=== PATIENT | male | born 1945 | race Caucasian/White ===

== ENCOUNTER 2021-04-23 13:23 | Inpatient (IN) ==
--- NOTE | 2021-04-23 18:18 | XRay Report ---
SINGLE VIEW CHEST CLINICAL HISTORY: Atypical chest pain. FINDINGS: 2 AP, portable, upright chest radiographs are obtained. No prior studies are available for comparison at the time of dictation. The heart is mildly enlarged noting atherosclerotic calcificati on of the thoracic aorta. The pulmonary vasculature is noncongested. The lungs and pleural spaces are clear. No pneumothorax is seen. The skeletal structures are osteopenic. The bony thorax is grossly i ntact. Degenerative change is noted in the shoulders and thoracic spine. IMPRESSION: Mild cardiomegaly with no active disease in the chest. ACT 112: Negative or not required by law. Electronically signed by: Slava Franco M.D. 04/23/2021 6:16 PM
--- NOTE | 2021-04-23 18:55 | Emergency Department Note ---
Impression & Plan Exertional chest pain, Systolic murmur ED Provider Note Name: MARTHA JOHNSON Age: 75 Sex: M Arrives Via: Walk-In Informant: Patient ED Provider: José Luis Mares MD Chief Complaint: chest pain Impression: Exertional Chest Pain Systolic Murmur Medical Decision Makin yr old male with history HTN, DMII, HLP, GI Bleed/PUD, arrives with complaint of chest pain with exertion over last few days, worsening tonight. Currently without symptoms and feels well at rest. On exam he has systolic murmur which he denies having mentioned to him previously. CXR, ekg, trop all wnl. Labs otherwise OK. Will need further cardiac work up and I have high suspicious cardiac disease, though without current pain, ekg abnormality nor trop bump will hold on anticoagulation at this time. Discussed with hospitalist who agree and will bring in for further management. Unclear etiology of systolic murmur which will also require further work up. Triage/Nursing Notes reviewed by Me Differentials:Cardiac ischemia, aortic dissection, pulmonary embolism, pneumothorax, pneumonia, pericarditis, myocarditis, esophageal rupture, GERD, cholecystitis, pancreatitis, musculoskeletal, as well as other pathologies. Vital Signs: reviewed and remarkable for HTN Interventions: saline lock, asa 324mg po Labs:Reviewed and remarkable for no significant abnormalities Imaging:X ray results are stated below per my interpretation: Chest: 1 view: Mildly enlarged heart, mild congestion EKG:Per My Interpretation: Indication Chest Pain: NSR 87 bpm, qtc 418. No Ectopy. No Ischemia. No previous for comparison Cardiac/Tele Monitoring: Cardiac Monitoring: An Order was placed for continuous cardiac monitoring. The monitor shows a rate of 80 with a normal sinus rhythm. Consults:Dr Drew DURBIN Hospitalist Plan: Disposition:Hospitalization. Condition: Good History of Present Illness:75 yr old male arrives for evaluation of exertional chest pain. Patient notes that over the last 3 days he has been having increasing chest pain with exertion. Left upper chest and pressure like. No radiation of pain. No shortness fo breath, vomiting, nausea, palpitations, syncope, leg swelling, nor other symptoms. Denies abdominal pain, back pain, headache, rashes, urinary/bowel symptoms, calf pain nor other symptoms. No recent travel, falls, trauma, injuries. No history of cardiac disease nor cardiac work-up. No medications taken prior to arrival. Rest makes symptoms go away, exertion makes worse. Patient denies history of known murmur before. ROS: See above HPI for pertinent positives & negatives. A total of 10 systems reviewed and were otherwise negative. Past Medical History:HTN, DMII, HLP, GI Bleed/PUD Past Surgical History:None Family History:Brother of COPD/CAD Social History:Retired, golfs regularly, , daughter and son are Cardiac RNs, smokes cigar every 3 to 4 days, occasional beer, no drugs Home Medications:Glipizide, metformin, atorvastatin, lisinopril Allergies:NKDA Vitals:Blood Pressure: 143/82, Pulse 91, RR 18, T 36.8C, O2 97% on RA Physical Exam: GENERAL: Patient is tired appearing and in minimal distress. EYES: No scleral icterus, unremarkable pupils. ENT: Mucous membranes moist, no nasal congestion. NECK: No masses appreciated, nomeningismus, trachea is midline. RESPIRATORY: No dyspnea. Clear to auscultation and equal bilaterally. No wheeze, no rhonchi. CARDIOVASCULAR: Regular rate and rhythm.No rubs, gallops appreciated. Soft systolic murmur. GASTROINTESTINAL: Abdomen soft, non-tender, no peritonitis.Bowel sounds positive.No masses appreciated. BACK: No midline tenderness, no CVA tenderness EXTREMITIES: Normal motion all extremities, no cyanosis, no edema. NEUROLOGIC: Alert and oriented, no acute motor or sensory deficits, no focal w eakness, cranial nerves grossly intact. SKIN: No rash, no jaundice, no diaphoresis. PSYCH: Appropriate GCS: 15 ED Course: Times/Reassessments: stable, no further symptoms, feeling well José Luis Mares MD Past Med/Surg History Social History Smoking Status: Light tobacco smoker Tobacco Type: Cigars Cigarettes Per Day: occassionally; Second Hand Exposure: No; Do You Dip or Chew Tobacco: No; Tobacco Cessation Education Requested by Patient: No Hx Alcohol Use: Yes Alcohol type: beer Hx Substance Use: No Preferred Language: Ukrainian Communication Ability: Effective Game Show Host Required: No Beliefs That Will Affect Care: None Current Living Situation: Spouse Current Living Situation Comment: Lives at home with Other Information That Helps Us Care for You: No Feels Safe at Home: Yes Assistive Devices: None Allergies Allergies Allergy/AdvReac Type Severity Reaction Status Date / Time No Known Allergies Allergy Unverified 04/23/21 19:42 Home Meds Home Medications Medication Instructions Recorded Confirmed atorvastatin 20 mg tablet 20 mg PO HS 04/23/21 04/23/21 glipizide 10 mg tablet 10 mg PO BID 04/23/21 04/23/21 lisinopril 40 mg tablet 40 mg PO QAM 04/23/21 04/23/21 metformin 1,000 mg tablet 1,000 mg PO BID 04/23/21 04/23/21 Results & Data (ED) Vital Signs Vital Signs - 24 hr 04/23/21 13:28 04/23/21 19:26 04/23/21 19:30 Temperature 36.8 C Temperature Source Skin Pulse Rate 91 H 74 Pulse Rate from SpO2 Sensor 76 Respiratory Rate 18 16 Blood Pressure 143/82 H 138/95 Blood Pressure Mean 102 109 Pulse Oximetry 97 99 Oxygen Delivery Method Room Air Sepsis Recent Fever Within 48 Hours No Sepsis New/Unexplained Change in Mental Status No Sepsis Action Taken by Nursing No Action Required 04/23/21 20:00 04/23/21 20:30 04/23/21 21:00 Temperature Temperature Source Pulse Rate 76 84 82 Pulse Rate from SpO2 Sensor 77 86 82 Respiratory Rate 17 18 20 Blood Pressure Blood Pressure Mean Pulse Oximetry 100 98 98 Oxygen Delivery Method Sepsis Recent Fever Within 48 Hours Sepsis New/Unexplained Change in Mental Status Sepsis Action Taken by Nursing 04/23/21 21:30 Temperature Temperature Source Pulse Rate 79 Pulse Rate from SpO2 Sensor 77 Respiratory Rate 16 Blood Pressure Blood Pressure Mean Pulse Oximetry 96 Oxygen Delivery Method Sepsis Recent Fever Within 48 Hours Sepsis New/Unexplained Change in Mental Status Sepsis Action Taken by Nursing Laboratory Data Result diagrams: 04/23/21 19:24 04/23/21 19:24 Lab Results 04/23/21 04/23/21 04/23/21 Range/Units 19:07 19:07 19:24 WBC 9.37 (4.8-10.8) K/uL RBC 4.60 L (4.7-6.1) M/uL Hgb 13.7 L (14.0-18.0) g/dL Hct 40.6 L (42-52) % MCV 88.3 (80-100) fL MCH 29.8 (25-34) pg MCHC 33.7 (32-36) g/dL RDW Std Deviation 42.4 (36.4-46.3) fL RDW Coeff of Edilson 13.1 (11.5-14.5) % Plt Count 278 (130-400) K/uL MPV 10.0 (7.4-10.4) fL Immature Gran % (Auto) 0.1 % Neut % (Auto) 66.1 % Lymph % (Auto) 25.8 % Garza % (Auto) 6.3 % Eos % (Auto) 1.4 % Baso % (Auto) 0.3 % Neut # (Auto) 6.19 (1.4-6.5) K/uL Lymph # (Auto) 2.42 (1.2-3.4) K/uL Garza # (Auto) 0.59 (0.11-0.59) K/uL Eos # (Auto) 0.13 (0-0.5) K/uL Baso # (Auto) 0.03 (0-0.2) K/uL Immature Gran # (Auto) 0.01 (0.00-0.02) K/uL PT (9.0-12.0) Seconds INR (0.9-1.1) APTT (21.0-31.0) Seconds PTT Ratio Sodium (136-145) mmol/L Potassium (3.5-5.1) mmol/L Chloride (98-107) mmol/L Carbon Dioxide (21-32) mmol/L Anion Gap (3-11) BUN (7-18) mg/dl Creatinine (0.6-1.4) mg/dl Est Cr Clr Drug Dosing ml/min Est GFR ( Amer) ml/min Est GFR (Non-Af Amer) ml/min BUN/Creatinine Ratio (10-20) Glucose (70-99) mg/dl Calcium (8.5-10.1) mg/dl Magnesium (1.8-2.4) mg/dl Total Bilirubin (0.2-1) mg/dl AST (15-37) U/L ALT (12-78) U/L Alkaline Phosphatase (45-117) U/L Troponin I (0-0.045) ng/ml Total Protein (6.4-8.2) gm/dl Albumin (3.4-5.0) gm/dl Globulin (2.5-4.0) gm/dl Albumin/Globulin Ratio (0.9-2) Lipase (73-393) U/L COVID-19 Eval Order Covid19 at [facility] SARS-CoV-2 (PCR) NEGATIVE (Negative) 04/23/21 04/23/21 Range/Units 19:24 19:24 WBC (4.8-10.8) K/uL RBC (4.7-6.1) M/uL Hgb (14.0-18.0) g/dL Hct (42-52) % MCV (80-100) fL MCH (25-34) pg MCHC (32-36) g/dL RDW Std Deviation (36.4-46.3) fL RDW Coeff of Edilson (11.5-14.5) % Plt Count (130-400) K/uL MPV (7.4-10.4) fL Immature Gran % (Auto) % Neut % (Auto) % Lymph % (Auto) % Garza % (Auto) % Eos % (Auto) % Baso % (Auto) % Neut # (Auto) (1.4-6.5) K/uL Lymph # (Auto) (1.2-3.4) K/uL Garza # (Auto) (0.11-0.59) K/uL Eos # (Auto) (0-0.5) K/uL Baso # (Auto) (0-0.2) K/uL Immature Gran # (Auto) (0.00-0.02) K/uL PT 10.3 (9.0-12.0) Seconds INR 1.0 (0.9-1.1) APTT 26.5 (21.0-31.0) Seconds PTT Ratio 1.0 Sodium 137 (136-145) mmol/L Potassium 4.1 (3.5-5.1) mmol/L Chloride 103 (98-107) mmol/L Carbon Dioxide 27 (21-32) mmol/L Anion Gap 7.0 (3-11) BUN 18 (7-18) mg/dl Creatinine 1.14 (0.6-1.4) mg/dl Est Cr Clr Drug Dosing 80.2 ml/min Est GFR ( Amer) 72.5 ml/min Est GFR (Non-Af Amer) 62.6 ml/min BUN/Creatinine Ratio 15.4 (10-20) Glucose 97 (70-99) mg/dl Calcium 9.8 (8.5-10.1) mg/dl Magnesium 1.9 (1.8-2.4) mg/dl Total Bilirubin 0.6 (0.2-1) mg/dl AST 13 L (15-37) U/L ALT 20 (12-78) U/L Alkaline Phosphatase 87 (45-117) U/L Troponin I 0.045 (0-0.045) ng/ml Total Protein 8.7 H (6.4-8.2) gm/dl Albumin 3.9 (3.4-5.0) gm/dl Globulin 4.8 H (2.5-4.0) gm/dl Albumin/Globulin Ratio 0.8 L (0.9-2) Lipase 141 (73-393) U/L COVID-19 Eval Order SARS-CoV-2 (PCR) (Negative) Administered Medications Discontinued Medications Aspirin (Aspirin 81 Mg Chew) 324 mg PO NOW STA Stop: 04/23/21 20:09 Last Admin: 04/23/21 20:17 Dose: 324 mg Documented by: [id number] Enoxaparin Sodium (Enoxaparin Inj 40 Mg/0.4 Ml Syr) 40 mg SQ Q12H KEY Stop: 05/24/21 01:01 Last Admin: 04/24/21 01:19 Dose: Not Given Documented by: [id number] Imaging Data Radiologist's Impression: Chest X-Ray 04/23/21 14:13 SINGLE VIEW CHEST CLINICAL HISTORY: Atypical chest pain. FINDINGS: 2 AP, portable, upright chest radiographs are obtained. No prior studies are available for comparison at the time of dictation. The heart is mildly enlarged noting atherosclerotic calcification of the thoracic aorta. The pulmonary vasculature is noncongested. The lungs and pleural spaces are clear. No pneumothorax is seen. The skeletal structures are osteopenic. The bony thorax is grossly intact. Degenerative change is noted in the shoulders and thoracic spine. IMPRESSION: Mild cardiomegaly with no active disease in the chest. ACT 112: Negative or not required by law. Electronically signed by: Slava Franco M.D. 04/23/2021 6:16 PM Discharge Plan Visit Data Chief Complaint: Chest Pain Stated Complaint: CHEST PAINS WITH PHYSICAL ACTIVITY ED Provider: José Luis Mares Discharge Problem: Exertional chest pain, Systolic murmur Discharge Instructions Interventions: ED Discharge Assessment Last Done: 04/24/21 00:29
[2021-04-23 19:37] LABS: Basophils # (auto) 0.03 K/uL (0-0.2); Basophils % (auto) 0.3 %; Eosinophils # (auto) 0.13 K/uL (0-0.5); Eosinophils % (auto) 1.4 %; Hematocrit (blood only) 40.6 % (42-52); Hemoglobin 13.7 g/dL (14.0-18.0); Immature Granulocytes # (auto) 0.01 K/uL (0.00-0.02); Immature Granulocytes % (auto) 0.1 %; Lymphocytes # (auto) 2.42 K/uL (1.2-3.4); Lymphocytes % (auto) 25.8 %; Mean Corpuscular Hemoglobin 29.8 pg (25-34); Mean Corpuscular Hgb Conc 33.7 g/dL (32-36); Mean Corpuscular Volume 88.3 fL (80-100); Monocytes # (auto) 0.59 K/uL (0.11-0.59); Monocytes % (auto) 6.3 %; Neutrophils # (auto) 6.19 K/uL (1.4-6.5); Neutrophils % (auto) 66.1 %; Platelet Count 278 K/uL (130-400); RDW Coefficient of Variation 13.1 % (11.5-14.5); RDW Standard Deviation 42.4 fL (36.4-46.3); White Blood Count 9.37 K/uL (4.8-10.8)
[2021-04-23 19:48] LABS: Partial Thromboplastin Time 26.5 Seconds (21.0-31.0); Prothrombin Time 10.3 Seconds (9.0-12.0)
[2021-04-23 19:53] LABS: Albumin Level 3.9 gm/dl (3.4-5.0); BUN Creatinine Ratio 15.4 (10-20); Calcium 9.8 mg/dl (8.5-10.1); Creatinine Clr Calc Pharmacy 80.2 ml/min; Est GFR (African American) 72.5 ml/min; Est GFR (Non-African American) 62.6 ml/min; Potassium 4.1 mmol/L (3.5-5.1)
[2021-04-23 19:58] LABS: Albumin Globulin Ratio 0.8 (0.9-2); Bilirubin,Total 0.6 mg/dl (0.2-1); Globulin 4.8 gm/dl (2.5-4.0); Total Protein 8.7 gm/dl (6.4-8.2); Troponin I 0.045 ng/ml (0-0.045)
[2021-04-23] MEDS ORDERED: ASPIRIN 81 MG CHEW PO STA (20:08)
--- NOTE | 2021-04-23 21:42 | History & Physical Report ---
Date of Service April 23, 2021 Assessment & Plan (1) Exertional chest pain: Plan: Will Davis is a 75-year-old male with past medical history of hyperlipidemia, hypertension, diabetes mellitus type 2, tobacco use who presents to [facility] due to exertional chest pain twice over the last 3 days. Exertional Chest Pain EKG with normal sinus rhythm, no ST changes Troponin detectable but at upper limit of normal Chest x-ray with mild cardiomegaly Admit for observation to med telemetry Repeat troponin 3 hours after initial Echocardiogram in the morning Lipid profile ordered for a.m. Cardiology consulted for evaluation of possible stress testing versus cath Magnesium level ordered Aspirin 81 mg every morning Systolic murmur Best heard at right upper sternal border Likely aortic stenosis Elevated total protein Repeat level in the morning If sustained, consider further work-up for MGUS/multiple myeloma Diabetes Mellitus Type 2 Hold home glipizide and Metformin Sliding scale insulin Basal coverage with Lantus 12 units twice daily NovoLog: Correction factor 35, carb ratio 11, BSG range 110-140 A1c in the morning Hypertension/Hyperlipidemia Continue home lisinopril 40 mg daily Continue home atorvastatin 20 mg daily Lipid panel in the morning DVT prophylaxis: Lovenox 40 mg SQ every 12 hours Dispo: Admit for observation to med telemetry Diet: Heart healthy CODE STATUS: Full code (2) Systolic murmur: (3) Diabetes mellitus: (4) Hypertension: (5) Hyperlipidemia: (6) Elevated total protein: History of Present Illness Primary Care Provider: NO PCP Will Davis is a 75-year-old male with past medical history of hyperlipidemia, hypertension, diabetes mellitus type 2, tobacco use who presents to [facility] due to exertional chest pain twice over the last 3 days. He says that the chest pain was localized to the left side of his chest and did not radiate to his arm or his neck, though he does say that his left hand felt a bit numb on one of the occasions. He describes the pain as mostly a pressure. This is the first time this is ever happened to him, has never had chest pain before. Denies nausea, vomiting, shortness of breath, dizziness, palpitations, loss of consciousness, swelling, abdominal pain, headache, urinary symptoms. In the ED, received aspirin 324 mg x 1. Had labs with troponin of 0.045 (detectable but at the high limit of normal value), hemoglobin of 13.7, normal white count, normal platelets, normal coags, normal electrolytes, elevated total protein of 8.7. COVID-19 negative. Chest x-ray with mild cardiomegaly and no active disease in the chest. EKG with normal sinus rhythm, no ST changes. Allergies Allergy/AdvReac Type Severity Reaction Status Date / Time No Known Allergies Allergy Unverified 04/23/21 19:42 Home Medications Medication Instructions Recorded Confirmed Type atorvastatin 20 mg tablet 20 mg PO HS 04/23/21 04/23/21 History glipizide 10 mg tablet 10 mg PO BID 04/23/21 04/23/21 History lisinopril 40 mg tablet 40 mg PO QAM 04/23/21 04/23/21 History metformin 1,000 mg tablet 1,000 mg PO BID 04/23/21 04/23/21 History Past Med/Surg History Medical History (Updated 04/24/21 @ 15:15 by Graham Conner MD) Hyperlipidemia Hypertension Type 2 diabetes mellitus Social History (Updated 04/24/21 @ 15:02 by Graham Conner MD) Smoking Status: Light tobacco smoker Tobacco Type: Cigars Cigarettes Per Day: occassionally; Second Hand Exposure: No; Do You Dip or Chew Tobacco: No; Tobacco Cessation Education Requested by Patient: No Hx Alcohol Use: No Hx Substance Use: No Preferred Language: Guinean Communication Ability: Effective Operating Room Technician Required: No Beliefs That Will Affect Care: None Current Living Situation: Spouse Current Living Situation Comment: Lives at home with Other Information That Helps Us Care for You: No Feels Safe at Home: Yes Assistive Devices: None Review of Systems Review of Systems: All systems reviewed & are unremarkable except as noted in HPI & below Physical Exam Physical Exam: GENERAL: A&Ox3. NAD. HEENT: PERRL, EOMI. Moist mucous membranes. NECK: No JVD. No lymphadenopathy. CHEST/LUNGS: CTAB A/P. No crackles, wheezes, rales, rhonchi. HEART: RRR. 2/6 Systolic murmur best heard at upper right sternal border. ABDOMEN: NT/ND, soft. BS+ x4 EXTREMITIES: No cyanosis, no clubbing, no edema SKIN: Warm and dry. No rashes or lesions. PSYCHIATRIC: Euthymic affect, no SI, no pressured speech, no hallucinations NEUROLOGIC: No FND. CN II-XII grossly intact. Results & Data Results & Data ([facility]) Vital Signs (Past 12 Hours) Vital Signs Temp Pulse Resp BP Pulse Ox 04/23/21 20:30 84 18 98 04/23/21 20:00 76 17 100 04/23/21 19:30 74 16 99 04/23/21 19:26 138/95 04/23/21 13:28 36.8 C 91 H 18 143/82 H 97 Code Status & VTE Plan VTE Prophylaxis Plan VTE Prophylaxis will be ordered: Yes Supervising Physician Co-Signing Physician Notes Attending addendum: I have physically seen this patient, have supervised the medical residents activities, and agree with the H&P unless as otherwise noted. Assessment and Plan: Exertional chest pain/hypertension/strong family history of heart disease- The patient will be admitted to telemetry for serial cardiac enzymes, serial EKG's, cardiac rhythm monitoring and a 2-D echocardiogram with Dopplers. Additional risk factors include age and diabetes mellitus. Troponin 0.04 upon admission, at upper limit of normal Expect will need cardiac catheterization Continue lisinopril, aspirin. If blood pressure tolerates, will add beta-anthony and Nitropaste Check a fasting lipid panel and hemoglobin A1c Consult cardiology Diabetes mellitus type 2- Hold glipizide and Metformin Placed on Accu-Cheks before meals and at bedtime with NovoLog coverage per scale Hyperlipidemia- Continue atorvastatin, will increase from 20 mg to 80 mg daily Remaining orders and notations as noted Resident Activity Tracking Resident Involvement: Resident Care Provided Care Provided: Adult Hospital Medicine
[2021-04-23 22:10] LABS: Magnesium 1.9 mg/dl (1.8-2.4)
[2021-04-24] MEDS ORDERED: ENOXAPARIN INJ 40 MG/0.4 ML SYR SQ SCH (01:02)
[2021-04-24] MEDS ORDERED: NITROGLYCERIN SL 0.4 MG/TAB TAB SL PRN (01:02)
[2021-04-24] MEDS ORDERED: GLUCOSE 10 TABS/TUBE PO PRN (01:02)
[2021-04-24] MEDS ORDERED: MoRPHine SULFATE 2 MG/ML CARP IV PRN (01:02)
[2021-04-24] MEDS ORDERED: ACETAMINOPHEN 325 MG TAB PO PRN (01:02)
[2021-04-24] MEDS ORDERED: DEXTROSE 50% 50 ML SYRINGE IV PRN (01:02)
[2021-04-24] MEDS ORDERED: ONDANSETRON INJ 2 MG/ML 2 ML VIAL IV PRN (01:02)
[2021-04-24] MEDS ORDERED: GLUCOSE 40% GEL 15 GM TUBE PO PRN (01:02)
[2021-04-24] MEDS ORDERED: CARBOHYDRATES FOR HYPOGLYCEMIA PO PRN (01:02)
[2021-04-24] MEDS ORDERED: GLUCAGON FOR INJ 1 MG VIAL SQ PRN (01:02)
[2021-04-24] MEDS ORDERED: POLYETHYLENE (MIRALAX) 17 GM PACK PO PRN (01:02)
--- NOTE | 2021-04-24 05:47 | Electrocardiogram Report ---
Test Reason : Blood Pressure : / mmHG Vent. Rate : 087 BPM Atrial Rate : 087 BPM P-R Int : 202 ms QRS Dur : 072 ms QT Int : 348 ms P-R-T Axes : 036 -04 008 degrees QTc Int : 418 ms Normal sinus rhythm Low voltage QRS Cannot rule out Anterior infarct , age undetermined Abnormal ECG No previous ECGs available Confirmed by Graham Conner ([id number]) on 04/24/2021 5:46:31 AM Referred By: Confirmed By:Graham Conner
[2021-04-24] MEDS: ASPIRIN 81 MG ECTAB PO SCH (08:19)
[2021-04-24] MEDS: INSULIN ASPART 100 UNITS/ML 3 ML PEN SC SCH ×4 (08:19→20:50)
[2021-04-24] MEDS: lisinopril 40 MG TAB PO SCH (08:19)
[2021-04-24] MEDS: INSULIN GLARGINE SOLOSTAR 100 UNITS/ML 3 ML PEN SC SCH ×2 (08:20→20:51)
[2021-04-24] MEDS: ENOXAPARIN INJ 40 MG/0.4 ML SYR SQ SCH ×2 (09:41→21:01)
[2021-04-24 09:53] LABS: Basophils # (auto) 0.04 K/uL (0-0.2); Basophils % (auto) 0.5 %; Eosinophils # (auto) 0.09 K/uL (0-0.5); Eosinophils % (auto) 1.2 %; Hematocrit (blood only) 40.7 % (42-52); Hemoglobin 13.5 g/dL (14.0-18.0); Immature Granulocytes # (auto) 0.01 K/uL (0.00-0.02); Immature Granulocytes % (auto) 0.1 %; Lymphocytes % (auto) 15.5 %; Mean Corpuscular Hemoglobin 29.7 pg (25-34); Mean Corpuscular Hgb Conc 33.2 g/dL (32-36); Mean Corpuscular Volume 89.5 fL (80-100); Monocytes % (auto) 6.5 %; Neutrophils # (auto) 5.91 K/uL (1.4-6.5); Neutrophils % (auto) 76.2 %; Platelet Count 258 K/uL (130-400); RDW Coefficient of Variation 12.9 % (11.5-14.5); RDW Standard Deviation 42.1 fL (36.4-46.3); Red Blood Count 4.55 M/uL (4.7-6.1); White Blood Count 7.75 K/uL (4.8-10.8)
[2021-04-24 10:12] LABS: Estimated Average Glucose 154 mg/dl
[2021-04-24 10:52] LABS: Albumin Level 3.4 gm/dl (3.4-5.0); BUN Creatinine Ratio 14.7 (10-20); Calcium 9.4 mg/dl (8.5-10.1); Creatinine Clr Calc Pharmacy 77.2 ml/min; Est GFR (African American) 68.8 ml/min; Est GFR (Non-African American) 59.4 ml/min; Potassium 4.5 mmol/L (3.5-5.1)
[2021-04-24 10:55] LABS: Albumin Globulin Ratio 0.8 (0.9-2); Bilirubin,Total 0.7 mg/dl (0.2-1); Globulin 4.5 gm/dl (2.5-4.0); Total Protein 7.9 gm/dl (6.4-8.2)
--- NOTE | 2021-04-24 14:13 | Pre Anesthesia Assessment ---
Date of Service April 24, 2021 Pre Sedation Assessment Vital Signs Temp Pulse Pulse Pulse Resp BP BP 04/24/21 11:40 36.5 C 85 85 16 126/76 04/24/21 08:49 78 04/24/21 01:13 36.5 C 97 H 16 174/85 H 04/24/21 01:11 101 H 04/24/21 01:02 36.5 C 97 H 16 174/85 H 04/24/21 00:07 80 16 04/23/21 22:49 83 16 04/23/21 21:30 79 16 04/23/21 21:00 82 20 04/23/21 20:30 84 18 04/23/21 20:00 76 17 04/23/21 19:30 74 16 04/23/21 19:26 138/95 BP Pulse Ox 04/24/21 11:40 96 04/24/21 08:49 04/24/21 01:13 98 04/24/21 01:11 04/24/21 01:02 98 04/24/21 00:07 125/71 97 04/23/21 22:49 150/91 H 98 04/23/21 21:30 96 04/23/21 21:00 98 04/23/21 20:30 98 04/23/21 20:00 100 04/23/21 19:30 99 04/23/21 19:26 Cardiovascular + regular rate + murmur Respiratory normal respiratory effort, lungs clear to auscultation Pre-Sedation Airway Assessment Smoking Status: Light tobacco smoker Mallampati Class: III ASA: ASA3 NPO Status Date of Last Intake of Fluids: 04/24/21 Time of Last Intake of Fluids: 08:00 Date of Last Intake of Solid Food: 04/24/21 Time of Last Intake of Solid Foods: 07:30 Procedure Planning Contraindications for Sedation: none Current Medications Reviewed: Yes Notes The planned sedation has been discussed with the patient. Informed Consent was obtained. I have identified the patient, determined the appropriateness of sedation and have assessed the patient immediately prior to the procedure. All medicine(s) and interventions are by my order.
--- NOTE | 2021-04-24 14:24 | XCELERA ---
[id number]
--- NOTE | 2021-04-24 15:05 | Cardiology Consultation ---
Date of Consultation April 24, 2021 Assessment & Plan (1) Exertional angina: (2) Hypertension: (3) Hyperlipidemia: (4) Aortic stenosis: (5) Mitral stenosis: ASSESSMENT/PLAN: 1. Angina: Symptoms concerning for angina, especially given abnormal echo, multiple risk factors for CAD, and change in troponin, although remained negative. Recommended cardiac catheterization. Risks and benefits were discussed with him in detail. He was made aware that CT surgery is not available at this facility. He was agreeable to undergo diagnostic angiography and PCI, if deemed appropriate, at this facility. Continue aspirin. Recommend metoprolol 25 mg twice daily. Cardiac catheterization is non urgent. 2. Aortic stenosis: Mild. Discussed findings on echo. Monitor over time. 3. Mitral stenosis: Appeared mild and may be related more so to the mitral annular calcification which was severe. Continue to monitor. Would not account for his symptoms. 4. Hypertension: Blood pressure is normotensive but has been intermittently hypertensive. Continue outpatient regimen with addition of beta-anthony as above. 5. Dyslipidemia: If found to have CAD, recommend high-intensity statin therapy, such as atorvastatin 40 mg daily although LDL is well controlled. 6. Disposition: Cardiology will continue to follow. Cardiac catheterization when lab is available. Patient care communicated with Dr. Zamora, of the primary hospitalist service. Patient's , Mrs. Davis, was personally contacted to update her on cardiology plan. Any questions were answered. Highly complex medical issues. Thank you for allowing me to participate in the care of your patient. Please call for any other questions or concerns. Sincerely, Luis Fernando Conner M.D. History of Present Illness Reason for Consultation: Exertional chest pain Requesting Physician: Dr. Li Attending Physician: Kenn Latham DO History of Present Illness Mr. Davis is a very pleasant 75-year-old gentleman with a history significant for type 2 diabetes, hypertension, dyslipidemia, tobacco abuse, and family history of CAD. He was admitted on 04/23/2021 after having 2 episodes of exertional chest pain. His first episode of chest discomfort occurred on 04/22/2021. It was a left-sided chest discomfort/pressure. There was left hand numbness that accompany the chest discomfort. Symptoms resolved quickly with rest, within a couple of minutes. He had another episode on 04/23/2021, the day of presentation. Once again symptoms occurred with exertion, while moving furniture, and quickly resolved with rest. There was no associated shortness of breath or diaphoresis. He admits that over the past week or so he has had decreased energy overall. He has been chest pain-free while here. He estimates that by the time he was seen in the emergency department, it had been 8 hour since his chest discomfort. He lives approximately [address] hospital. He denies melena, hematochezia, hematuria, or other bleeding. He denies syncope, near-syncope, palpitations, shortness of breath, orthopnea, fevers, chills, nausea, or vomiting. He tries to remain active but does not participate in dedicated exercise regimen. He estimates that he walks close to 1 mi while playing golf 3 days per week. At home in addition to his listed medications, he also takes aspirin 325 mg on a daily basis and has done so chronically. Review of systems: As above. Review of systems otherwise negative/unremarkable. Family history: Father had GA at the age of 56. Oldest brother had GA and during open heart surgery. Social history: Chronic tobacco use. Currently smokes cigars, 1-2 per week. Had smoked 4 packs of cigarettes per day while in [place] in his 20s. No alcohol or drug abuse. He lives at home with his . They have 3 children (daughter EDUCATIONAL MANAGER in [facility]; son RN [facility] [employer]; daughter pH D in music in [employer]). 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 He was unaccompanied. Allergies Allergy/AdvReac Type Severity Reaction Status Date / Time No Known Allergies Allergy Unverified 04/23/21 19:42 Home Medications Medication Instructions Recorded Confirmed Type atorvastatin 20 mg tablet 20 mg PO HS 04/23/21 04/23/21 History glipizide 10 mg tablet 10 mg PO BID 04/23/21 04/23/21 History lisinopril 40 mg tablet 40 mg PO QAM 04/23/21 04/23/21 History metformin 1,000 mg tablet 1,000 mg PO BID 04/23/21 04/23/21 History Patient History Medical History (Updated 04/24/21 @ 15:15 by Graham Conner MD) Hyperlipidemia Hypertension Type 2 diabetes mellitus Social History (Updated 04/24/21 @ 15:02 by Graham Conner MD) Smoking Status: Light tobacco smoker Tobacco Type: Cigars Cigarettes Per Day: occassionally; Second Hand Exposure: No; Do You Dip or Chew Tobacco: No; Tobacco Cessation Education Requested by Patient: No Hx Alcohol Use: No Hx Substance Use: No Preferred Language: Tajik Communication Ability: Effective Portrait Photographer Required: No Beliefs That Will Affect Care: None Current Living Situation: Spouse Current Living Situation Comment: Lives at home with Other Information That Helps Us Care for You: No Feels Safe at Home: Yes Assistive Devices: None Physical Exam Physical Exam: Gen.: No acute distress. Alert and oriented. HEENT: Anicteric sclera. Neck: No JVD. No bruits. Normal carotid upstrokes bilaterally. Cardiac: PMI was nonpalpable. No ventricular heave. Regular rate and rhythm. Normal S1-S2. 1/6 early peaking systolic ejection murmur best heard at the right upper sternal border. No rubs, or gallops. Pulmonary: Clear to auscultation bilaterally without wheezes, rales, or rhonchi. Abdomen: Soft, nontender, nondistended, with normoactive bowel sounds. No bruits noted. Extremities: 2+ radial pulses bilaterally. 2+ posterior tibialis pulses bilaterally. No edema or cyanosis. Psychiatric: Affect appears appropriate. Chest: Nontender. Results & Data ([facility]) Vital Signs (Past 12 Hours) Vital Signs Temp Pulse Pulse Pulse Resp BP Pulse Ox 04/24/21 11:40 36.5 C 85 85 16 126/76 96 04/24/21 08:49 78 Laboratory Results Laboratory Results - last 24 hr 04/23/21 04/23/21 04/23/21 19:07 19:07 19:24 WBC 9.37 RBC 4.60 L Hgb 13.7 L Hct 40.6 L MCV 88.3 MCH 29.8 MCHC 33.7 RDW Std Deviation 42.4 RDW Coeff of Edilson 13.1 Plt Count 278 MPV 10.0 Immature Gran % (Auto) 0.1 Neut % (Auto) 66.1 Lymph % (Auto) 25.8 Willacy % (Auto) 6.3 Eos % (Auto) 1.4 Baso % (Auto) 0.3 Neut # (Auto) 6.19 Lymph # (Auto) 2.42 Willacy # (Auto) 0.59 Eos # (Auto) 0.13 Baso # (Auto) 0.03 Immature Gran # (Auto) 0.01 PT INR APTT PTT Ratio Sodium Potassium Chloride Carbon Dioxide Anion Gap BUN Creatinine Est Cr Clr Drug Dosing Est GFR ( Amer) Est GFR (Non-Af Amer) BUN/Creatinine Ratio Glucose POC Glucose Estimat Average Glucose Hemoglobin A1c Calcium Magnesium Total Bilirubin AST ALT Alkaline Phosphatase Troponin I Total Protein Albumin Globulin Albumin/Globulin Ratio Triglycerides Cholesterol LDL Cholesterol, Calc VLDL Cholesterol, Calc HDL Cholesterol Cholesterol/HDL Ratio Lipase COVID-19 Eval Order Covid19 at [facility] SARS-CoV-2 (PCR) NEGATIVE 04/23/21 04/23/21 04/24/21 19:24 19:24 01:24 WBC RBC Hgb Hct MCV MCH MCHC RDW Std Deviation RDW Coeff of Edilson Plt Count MPV Immature Gran % (Auto) Neut % (Auto) Lymph % (Auto) Will[place] % (Auto) Eos % (Auto) Baso % (Auto) Neut # (Auto) Lymph # (Auto) Willacy # (Auto) Eos # (Auto) Baso # (Auto) Immature Gran # (Auto) PT 10.3 INR 1.0 APTT 26.5 PTT Ratio 1.0 Sodium 137 Potassium 4.1 Chloride 103 Carbon Dioxide 27 Anion Gap 7.0 BUN 18 Creatinine 1.14 Est Cr Clr Drug Dosing 80.2 Est GFR ( Amer) 72.5 Est GFR (Non-Af Amer) 62.6 BUN/Creatinine Ratio 15.4 Glucose 97 POC Glucose Estimat Average Glucose Hemoglobin A1c Calcium 9.8 Magnesium 1.9 Total Bilirubin 0.6 AST 13 L ALT 20 Alkaline Phosphatase 87 Troponin I 0.045 0.037 Total Protein 8.7 H Albumin 3.9 Globulin 4.8 H Albumin/Globulin Ratio 0.8 L Triglycerides Cholesterol LDL Cholesterol, Calc VLDL Cholesterol, Calc HDL Cholesterol Cholesterol/HDL Ratio Lipase 141 COVID-19 Eval Order SARS-CoV-2 (PCR) 04/24/21 04/24/21 04/24/21 07:30 07:47 09:29 WBC 7.75 RBC 4.55 L Hgb 13.5 L Hct 40.7 L MCV 89.5 MCH 29.7 MCHC 33.2 RDW Std Deviation 42.1 RDW Coeff of Edilson 12.9 Plt Count 258 MPV 10.0 Immature Gran % (Auto) 0.1 Neut % (Auto) 76.2 Lymph % (Auto) 15.5 Willacy % (Auto) 6.5 Eos % (Auto) 1.2 Baso % (Auto) 0.5 Neut # (Auto) 5.91 Lymph # (Auto) 1.20 Willacy # (Auto) 0.50 Eos # (Auto) 0.09 Baso # (Auto) 0.04 Immature Gran # (Auto) 0.01 PT INR APTT PTT Ratio Sodium Potassium Chloride Carbon Dioxide Anion Gap BUN Creatinine Est Cr Clr Drug Dosing Est GFR ( Amer) Est GFR (Non-Af Amer) BUN/Creatinine Ratio Glucose POC Glucose 118 H 131 H Estimat Average Glucose Hemoglobin A1c Calcium Magnesium Total Bilirubin AST ALT Alkaline Phosphatase Troponin I Total Protein Albumin Globulin Albumin/Globulin Ratio Triglycerides Cholesterol LDL Cholesterol, Calc VLDL Cholesterol, Calc HDL Cholesterol Cholesterol/HDL Ratio Lipase COVID-19 Eval Order SARS-CoV-2 (PCR) 04/24/21 04/24/21 04/24/21 09:29 09:35 11:22 WBC RBC Hgb Hct MCV MCH MCHC RDW Std Deviation RDW Coeff of Edilson Plt Count MPV Immature Gran % (Auto) Neut % (Auto) Lymph % (Auto) [place] % (Auto) Eos % (Auto) Baso % (Auto) Neut # (Auto) Lymph # (Auto) Willacy # (Auto) Eos # (Auto) Baso # (Auto) Immature Gran # (Auto) PT INR APTT PTT Ratio Sodium 137 Potassium 4.5 Chloride 104 Carbon Dioxide 28 Anion Gap 5.0 BUN 18 Creatinine 1.19 Est Cr Clr Drug Dosing 77.2 Est GFR ( Amer) 68.8 Est GFR (Non-Af Amer) 59.4 BUN/Creatinine Ratio 14.7 Glucose 201 H POC Glucose 165 H Estimat Average Glucose 154 Hemoglobin A1c 7.0 H Calcium 9.4 Magnesium Total Bilirubin 0.7 AST 13 L ALT 20 Alkaline Phosphatase 80 Troponin I Total Protein 7.9 Albumin 3.4 Globulin 4.5 H Albumin/Globulin Ratio 0.8 L Triglycerides 142 Cholesterol 124 LDL Cholesterol, Calc 61 VLDL Cholesterol, Calc 28 HDL Cholesterol 35 Cholesterol/HDL Ratio 4 Lipase COVID-19 Eval Order SARS-CoV-2 (PCR) 04/24/21 11:23 WBC RBC Hgb Hct MCV MCH MCHC RDW Std Deviation RDW Coeff of Edilson Plt Count MPV Immature Gran % (Auto) Neut % (Auto) Lymph % (Auto) [place] % (Auto) Eos % (Auto) Baso % (Auto) Neut # (Auto) Lymph # (Auto) Will[place] # (Auto) Eos # (Auto) Baso # (Auto) Immature Gran # (Auto) PT INR APTT PTT Ratio Sodium Potassium Chloride Carbon Dioxide Anion Gap BUN Creatinine Est Cr Clr Drug Dosing Est GFR ( Amer) Est GFR (Non-Af Amer) BUN/Creatinine Ratio Glucose POC Glucose 154 H Estimat Average Glucose Hemoglobin A1c Calcium Magnesium Total Bilirubin AST ALT Alkaline Phosphatase Troponin I Total Protein Albumin Globulin Albumin/Globulin Ratio Triglycerides Cholesterol LDL Cholesterol, Calc VLDL Cholesterol, Calc HDL Cholesterol Cholesterol/HDL Ratio Lipase COVID-19 Eval Order SARS-CoV-2 (PCR) Diagnostic Findings Telemetry personally reviewed: Sinus rhythm. No arrhythmia. ECG personally reviewed: ECG 04/24/2021 at 1:59 p.m.: Sinus rhythm 88 beats per minute. Anterior T-wave inversion more evident compared to previous ECG. ECG 04/23/2021 at 1:35 p.m.: Sinus rhythm 87 beats per minute. Chest x-ray 04/23/2021: No active disease per Radiology. Echo 04/24/2021: Normal LV size and systolic function. EF 65-70%. Hypokinetic apex. Severe concentric LVH. Mild . Severe MAC with mild stenosis. Medications Administered Current Inpatient Medications Acetaminophen (Acetaminophen 325 Mg Tab) 650 mg PO Q4H PRN PRN Reason: Pain or Fever Stop: 05/24/21 01:01 Aspirin (Aspirin 81 Mg Ectab) 81 mg PO QAM KEY Stop: 05/24/21 08:59 Last Admin: 04/24/21 08:19 Dose: 81 mg Documented by: Atorvastatin Calcium (Atorvastatin 20 Mg Tab) 20 mg PO HS KEY Stop: 05/24/21 20:59 Dextrose (Dextrose 50% 50 Ml Syringe) 25 - 50 ml IV UD PRN; Protocol PRN Reason: Hypoglycemia Protocol Stop: 05/24/21 01:01 Enoxaparin Sodium (Enoxaparin Inj 40 Mg/0.4 Ml Syr) 40 mg SQ Q12 KEY Stop: 05/24/21 01:01 Last Admin: 04/24/21 09:41 Dose: 40 mg Documented by: Glucagon (Glucagon For Inj 1 Mg Vial) 1 mg SQ UD PRN; Protocol PRN Reason: Hypoglycemia Protocol Stop: 05/24/21 01:01 Glucose (Glucose 10 Tabs/Tube) 4 - 8 tabs PO UD PRN; Protocol PRN Reason: Hypoglycemia Protocol Stop: 05/24/21 01:01 Glucose (Glucose 40% Gel 15 Gm Tube) 15 - 30 gm PO UD PRN; Protocol PRN Reason: Hypoglycemia Protocol Stop: 05/24/21 01:01 Insulin Aspart (Insulin Aspart 100 Units/Ml 3 Ml Pen) 0 units SC ACHS KEY Stop: 05/24/21 07:29 Last Admin: 04/24/21 12:42 Dose: 1 units Documented by: Insulin Glargine (Insulin Glargine Solostar 100 Units/Ml 3 Ml Pen) 12 units SC BID KEY Stop: 05/24/21 08:59 Last Admin: 04/24/21 08:20 Dose: 12 units Documented by: Lisinopril (Lisinopril 40 Mg Tab) 40 mg PO QAM KEY Stop: 05/24/21 08:59 Last Admin: 04/24/21 08:19 Dose: 40 mg Documented by: Miscellaneous (Carbohydrates For Hypoglycemia ) 15 - 30 gm PO UD PRN PRN Reason: Hypoglycemia Protocol Stop: 05/24/21 01:01 Morphine Sulfate (Morphine Sulfate 2 Mg/Ml Carp) 2 mg IV Q30M PRN PRN Reason: Chest Pain Stop: 05/08/21 01:01 Nitroglycerin (Nitroglycerin Sl 0.4 Mg/Tab Tab) 0.4 mg SL UD PRN PRN Reason: Chest Pain Stop: 05/24/21 01:01 Ondansetron HCl (Ondansetron Inj 2 Mg/Ml 2 Ml Vial) 4 mg IV Q6H PRN PRN Reason: Nausea Stop: 05/24/21 01:01 Polyethylene Glycol (Polyethylene (Miralax) 17 Gm Pack) 17 gm PO DAILY PRN PRN Reason: Constipation Stop: 05/24/21 01:01 PG Care Time/CCT Total # of Minutes Spent Total Time Spent with Patient: Total time spent is greater than 50% in coordination of care (as documented) at patient's floor/unit and/or counseling patient: Coding Level of Care Code 85729 Initial Inpt Care Lvl 3 Diagnoses Exertional angina I20.8 Hypertension I10 Hyperlipidemia E78.5 Aortic stenosis I35.0 Mitral stenosis I05.0
[2021-04-24] MEDS ORDERED: fentaNYL citrate 100 MCG/2 ML VIAL ONE (15:25)
[2021-04-24] MEDS ORDERED: HEPARIN (PORCINE) 1000 UNIT/ML 10 ML (CATH LAB USE ONLY) ONE ×2 (15:25→16:27)
[2021-04-24] MEDS ORDERED: MIDAZOLAM HCL 1 MG/ML 2ML VIAL ONE (15:25)
[2021-04-24] MEDS ORDERED: niCARdipine HCL INJ 2.5 MG/ML 10 ML AMP ONE (15:25)
[2021-04-24] MEDS ORDERED: NITROGLYCERIN/D5W 100MCG/ML 20ML SYR ONE (15:26)
--- NOTE | 2021-04-24 16:28 | Cardiac Catheterization ---
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 Cardiac Status Clinical evaluation leading to the procedure CAD Presenation: Unstable angina Anginal Classification: CCS III Heart Failure: No Cardiogenic Shock within 24 Hours: No Cardiac Arrest within 24 Hours: No Imaging Studies Past 6 Months: Yes Stress Studies Past 6 Months: No Coronary Anatomy Dominant: Right Diagnostic Physicians Name: Graham Conner MD Status: Elective Closure Device Percutaneous Entry Location: Radial Closure Device: Radial Band (following PCI attempt) Recommendations: PCI without planned CABG Cardiac Cath Procedure Full Procedure Date April 24, 2021 Pre-Procedure Diagnosis Pre-Procedure Diagnosis: Angina AUC Score AUC Score: 8 Post-Procedure Diagnosis Post-Procedure Diagnosis: Severe CAD Procedure(s) Performed Procedure(s) Performed: Coronary Angiography Entertainment Manager Graham Conner MD Gis Application Developer(s) Diebler Estimated Blood Loss Estimated Blood Loss: < 20 Medication(s) Medication(s): Fentanyl, Heparin, Lidocaine 1%, Nicardipine and Versed Summary of Findings Procedures: 1. Coronary angiography 2. Moderate sedation Indication: 75-year-old gentleman with type 2 diabetes, hypertension, dyslipidemia, family history of CAD, and tobacco use who presented with angina, anterior T wave changes, and hypokinetic apex on echo. Coronary angiography: 1. Left main: No significant CAD. 2. Left anterior descending: Large caliber vessel that extends to the apex. Mid LAD 98% stenosis. Distal LAD diffusely diseased including 30 to 40% followed by 50%. RIGOBERTO I-II flow. Large D1 with ostial 70-80% stenosis. 3. Circumflex: Proximal luminal irregularities. Large OM1 with ostial/proximal 40%. 4. Right coronary artery: Dominant vessel. Mid RCA luminal irregularities. Proximal PDA 50 to 70%. RIGOBERTO-3 flow. Right to left collaterals. Moderate sedation: 1. Sedation start time: 3:43 PM 2. Sedation end time: 3:55 PM Procedural notes: 1. Coronary angiography was performed via the right radial artery without known complication. 2. Left heart catheterization was not attempted. Resting echo demonstrated mild aortic stenosis and normal LV systolic function. Impression: 1. Severe CAD involving mid LAD (culprit vessel) and ostial D1. 2. Moderate to severe CAD involving the PDA, and otherwise nonobstructive CAD. 3. Right to left collaterals. Plan: 1. Dr. Lemos of interventional cardiology was asked to review images and consider PCI of LAD. 2. Risk factor modification. Hemodynamics Rest Ao:: 98/51 Final Ao: 108/55 LV: n/a Recommendations Recommendations: PCI without planned CABG Specimens Specimens: None Radiation Exposure (mGy) 1108 mGy. Fluoro time 2.5 min. Contrast (mls) 75 ml Procedural Complication(s) None Disposition remains in labor delivery specialist for interventional cardiology I attest to the content of the Intraoperative Record and any orders documented therein. Any exceptions are noted below. [facility] Card Cath Procedure Codes Cardiac Catheterization Procedure 1: Cardiovascular Cath Procedures: 29459 Coronaries Moderate Sedation Procedure 1: Sedation/Anesthesia: 82172 Mod Sedation by the same physician;Init15 Min Child Age 5 & Up PG Care Time/CCT Total # of Minutes Spent Total Time Spent with Patient: Total time spent is greater than 50% in coordination of care (as documented) at patient's floor/unit and/or counseling patient:
--- NOTE | 2021-04-24 16:49 | Hospitalist Progress Note ---
Date of Service April 24, 2021 Assessment & Plan (1) Exertional chest pain: Plan: 75yo Male with PMH HTN, HLD, DM2 here for exertional chest pain. Severe LAD stenosis with Angina -Patient had 2 ep exertional chest pain -EKGx3 NSR, inferior infarct -CXR mild cardiomegaly -Trop neg, CBC mild anemia Hbg 13.7, BMP WNL, Mg 1.9, HA1c 7 -echo = EF 65-70%, hypokinetic apex, severe LVH, mild aortic regurge with trace regurge, severe mitral annular calcification with mild stenosis, normal RVSP -admit to PCU -cardiology consulted, recommend catheterization with possible PCI Severe CAD involving mid LAD (culprit vessel) and ostial D1. Moderate to severe CAD involving the PDA, and otherwise nonobstructive CAD. Right to left collaterals. -Dr. Lemos consulted for PCI -04/24 s/p PCI stent placed -Cardiology recommends adding metoprolol 25mg BID, inc atorvastatin 80mg, Brillinta Exertional Chest Pain see above Systolic murmur mild aortic and mitral stenosis Elevated total protein 8.7 --> 7.9 If sustained, consider further work-up for MGUS/multiple myeloma Diabetes Mellitus Type 2 Hold home glipizide and Metformin Sliding scale insulin Basal coverage with Lantus 12 units twice daily NovoLog: Correction factor 35, carb ratio 11, BSG range 110-140 A1c 7 Hypertension/Hyperlipidemia Continue home lisinopril 40 mg daily additional meds see above DVT prophylaxis: Lovenox 40 mg SQ every 12 hours Dispo: PCU Diet: Heart healthy CODE STATUS: Full code (2) Systolic murmur: (3) Diabetes mellitus: (4) Hypertension: (5) Hyperlipidemia: (6) Elevated total protein: Admission and Anticipated Discharge Date Admission Date: April 24, 2021 Supervising Physician Co-Signing Physician Notes I personally examined the patient and verified all parrish points of history and exam, discussed case, and agree with decision making with Dr Zamora. Feeling okay post cath. No chest pain. Vitals noted, in general he is awake and alert pleasant no distress. HEENT normocephalic atraumatic mucous membranes moist. Breathing unlabored no accessory muscle use good effort. Skin shows no rashes no pallor or icterus. Neuro without focal deficits. Coronary artery disease/unstable anginanow status post cath and stenting. Med management, lifestyle change, secondary risk reduction. Otherwise as above. Subjective 75yo Male with PMH HTN, HLD, DM2 here for exertional chest pain. Patient states he tried moving heavy furniture, felt left sided chest tightness, rested and the feeling went away. Next day he was moving more furniture and felt reoccurence of chest tightness that resolved quickly with rest. Patient denies cardiac history, states his recent lipid panels were normal, complies with medication, states this has never happened before. He states he has a FH OK in family, father [place] in 70's brother needed CABG. Patient states he smokes 2 cigars a week, 2 beers a week, drinks decaf, no illicit drugs. He states he was unaware he had a cardiac murmur. Patient seen at bedside comfortable cooperative, in no acute distress. Review of Systems Review of Systems: Negative fever chills Negative headache dizziness Negative chest pain palpitations SOB Negative nausea vomitting diarrhea constipation Negative numbness tingling rash swelling Physical Exam Physical Exam: General: Well appearing, age appropriate Heart: RRR, +S1 S2, systolic murmur at sternal border Lungs: cta b/l, no wheezes/rales/rhonchi Abd: soft, NT/ND, +BS Extremities: no swelling, no rashes Results & Data Results & Data ([facility]) Vital Signs (Past 12 Hours) Vital Signs Temp Pulse Pulse Pulse Resp BP Pulse Ox 04/24/21 15:09 92 H 04/24/21 14:59 37.0 C 61 18 111/72 95 04/24/21 11:40 36.5 C 85 85 16 126/76 96 04/24/21 08:49 78 Laboratory Results 04/24/21 04/24/21 04/24/21 Range/Units 11:23 11:22 09:35 WBC (4.8-10.8) K/uL RBC (4.7-6.1) M/uL Hgb (14.0-18.0) g/dL Hct (42-52) % MCV (80-100) fL MCH (25-34) pg MCHC (32-36) g/dL RDW Std Deviation (36.4-46.3) fL RDW Coeff of Edilson (11.5-14.5) % Plt Count (130-400) K/uL MPV (7.4-10.4) fL Immature Gran % (Auto) % Neut % (Auto) % Lymph % (Auto) % Stanton % (Auto) % Eos % (Auto) % Baso % (Auto) % Neut # (Auto) (1.4-6.5) K/uL Lymph # (Auto) (1.2-3.4) K/uL Stanton # (Auto) (0.11-0.59) K/uL Eos # (Auto) (0-0.5) K/uL Baso # (Auto) (0-0.2) K/uL Immature Gran # (Auto) (0.00-0.02) K/uL PT (9.0-12.0) Seconds INR (0.9-1.1) APTT (21.0-31.0) Seconds PTT Ratio Sodium 137 (136-145) mmol/L Potassium 4.5 (3.5-5.1) mmol/L Chloride 104 (98-107) mmol/L Carbon Dioxide 28 (21-32) mmol/L Anion Gap 5.0 (3-11) BUN 18 (7-18) mg/dl Creatinine 1.19 (0.6-1.4) mg/dl Est Cr Clr Drug Dosing 77.2 ml/min Est GFR ( Amer) 68.8 ml/min Est GFR (Non-Af Amer) 59.4 ml/min BUN/Creatinine Ratio 14.7 (10-20) Glucose 201 H (70-99) mg/dl POC Glucose 154 H 165 H (70-99) mg/dl Estimat Average Glucose mg/dl Hemoglobin A1c (4.5-5.6) % Calcium 9.4 (8.5-10.1) mg/dl Magnesium (1.8-2.4) mg/dl Total Bilirubin 0.7 (0.2-1) mg/dl AST 13 L (15-37) U/L ALT 20 (12-78) U/L Alkaline Phosphatase 80 (45-117) U/L Troponin I (0-0.045) ng/ml Total Protein 7.9 (6.4-8.2) gm/dl Albumin 3.4 (3.4-5.0) gm/dl Globulin 4.5 H (2.5-4.0) gm/dl Albumin/Globulin Ratio 0.8 L (0.9-2) Triglycerides 142 (0-150) mg/dl Cholesterol 124 (0-200) mg/dl LDL Cholesterol, Calc 61 mg/dl VLDL Cholesterol, Calc 28 mg/dl HDL Cholesterol 35 mg/dl Cholesterol/HDL Ratio 4 Lipase (73-393) U/L COVID-19 Eval Order SARS-CoV-2 (PCR) (Negative) 04/24/21 04/24/21 04/24/21 Range/Units 09:29 09:29 07:47 WBC 7.75 (4.8-10.8) K/uL RBC 4.55 L (4.7-6.1) M/uL Hgb 13.5 L (14.0-18.0) g/dL Hct 40.7 L (42-52) % MCV 89.5 (80-100) fL MCH 29.7 (25-34) pg MCHC 33.2 (32-36) g/dL RDW Std Deviation 42.1 (36.4-46.3) fL RDW Coeff of Edilson 12.9 (11.5-14.5) % Plt Count 258 (130-400) K/uL MPV 10.0 (7.4-10.4) fL Immature Gran % (Auto) 0.1 % Neut % (Auto) 76.2 % Lymph % (Auto) 15.5 % Stanton % (Auto) 6.5 % Eos % (Auto) 1.2 % Baso % (Auto) 0.5 % Neut # (Auto) 5.91 (1.4-6.5) K/uL Lymph # (Auto) 1.20 (1.2-3.4) K/uL Stanton # (Auto) 0.50 (0.11-0.59) K/uL Eos # (Auto) 0.09 (0-0.5) K/uL Baso # (Auto) 0.04 (0-0.2) K/uL Immature Gran # (Auto) 0.01 (0.00-0.02) K/uL PT (9.0-12.0) Seconds INR (0.9-1.1) APTT (21.0-31.0) Seconds PTT Ratio Sodium (136-145) mmol/L Potassium (3.5-5.1) mmol/L Chloride (98-107) mmol/L Carbon Dioxide (21-32) mmol/L Anion Gap (3-11) BUN (7-18) mg/dl Creatinine (0.6-1.4) mg/dl Est Cr Clr Drug Dosing ml/min Est GFR ( Amer) ml/min Est GFR (Non-Af Amer) ml/min BUN/Creatinine Ratio (10-20) Glucose (70-99) mg/dl POC Glucose 131 H (70-99) mg/dl Estimat Average Glucose 154 mg/dl Hemoglobin A1c 7.0 H (4.5-5.6) % Calcium (8.5-10.1) mg/dl Magnesium (1.8-2.4) mg/dl Total Bilirubin (0.2-1) mg/dl AST (15-37) U/L ALT (12-78) U/L Alkaline Phosphatase (45-117) U/L Troponin I (0-0.045) ng/ml Total Protein (6.4-8.2) gm/dl Albumin (3.4-5.0) gm/dl Globulin (2.5-4.0) gm/dl Albumin/Globulin Ratio (0.9-2) Triglycerides (0-150) mg/dl Cholesterol (0-200) mg/dl LDL Cholesterol, Calc mg/dl VLDL Cholesterol, Calc mg/dl HDL Cholesterol mg/dl Cholesterol/HDL Ratio Lipase (73-393) U/L COVID-19 Eval Order SARS-CoV-2 (PCR) (Negative) 04/24/21 04/24/21 04/23/21 Range/Units 07:30 01:24 19:24 WBC (4.8-10.8) K/uL RBC (4.7-6.1) M/uL Hgb (14.0-18.0) g/dL Hct (42-52) % MCV (80-100) fL MCH (25-34) pg MCHC (32-36) g/dL RDW Std Deviation (36.4-46.3) fL RDW Coeff of Edilson (11.5-14.5) % Plt Count (130-400) K/uL MPV (7.4-10.4) fL Immature Gran % (Auto) % Neut % (Auto) % Lymph % (Auto) % Stanton % (Auto) % Eos % (Auto) % Baso % (Auto) % Neut # (Auto) (1.4-6.5) K/uL Lymph # (Auto) (1.2-3.4) K/uL Stanton # (Auto) (0.11-0.59) K/uL Eos # (Auto) (0-0.5) K/uL Baso # (Auto) (0-0.2) K/uL Immature Gran # (Auto) (0.00-0.02) K/uL PT (9.0-12.0) Seconds INR (0.9-1.1) APTT (21.0-31.0) Seconds PTT Ratio Sodium 137 (136-145) mmol/L Potassium 4.1 (3.5-5.1) mmol/L Chloride 103 (98-107) mmol/L Carbon Dioxide 27 (21-32) mmol/L Anion Gap 7.0 (3-11) BUN 18 (7-18) mg/dl Creatinine 1.14 (0.6-1.4) mg/dl Est Cr Clr Drug Dosing 80.2 ml/min Est GFR ( Amer) 72.5 ml/min Est GFR (Non-Af Amer) 62.6 ml/min BUN/Creatinine Ratio 15.4 (10-20) Glucose 97 (70-99) mg/dl POC Glucose 118 H (70-99) mg/dl Estimat Average Glucose mg/dl Hemoglobin A1c (4.5-5.6) % Calcium 9.8 (8.5-10.1) mg/dl Magnesium 1.9 (1.8-2.4) mg/dl Total Bilirubin 0.6 (0.2-1) mg/dl AST 13 L (15-37) U/L ALT 20 (12-78) U/L Alkaline Phosphatase 87 (45-117) U/L Troponin I 0.037 0.045 (0-0.045) ng/ml Total Protein 8.7 H (6.4-8.2) gm/dl Albumin 3.9 (3.4-5.0) gm/dl Globulin 4.8 H (2.5-4.0) gm/dl Albumin/Globulin Ratio 0.8 L (0.9-2) Triglycerides (0-150) mg/dl Cholesterol (0-200) mg/dl LDL Cholesterol, Calc mg/dl VLDL Cholesterol, Calc mg/dl HDL Cholesterol mg/dl Cholesterol/HDL Ratio Lipase 141 (73-393) U/L COVID-19 Eval Order SARS-CoV-2 (PCR) (Negative) 04/23/21 04/23/21 04/23/21 Range/Units 19:24 19:24 19:07 WBC 9.37 (4.8-10.8) K/uL RBC 4.60 L (4.7-6.1) M/uL Hgb 13.7 L (14.0-18.0) g/dL Hct 40.6 L (42-52) % MCV 88.3 (80-100) fL MCH 29.8 (25-34) pg MCHC 33.7 (32-36) g/dL RDW Std Deviation 42.4 (36.4-46.3) fL RDW Coeff of Edilson 13.1 (11.5-14.5) % Plt Count 278 (130-400) K/uL MPV 10.0 (7.4-10.4) fL Immature Gran % (Auto) 0.1 % Neut % (Auto) 66.1 % Lymph % (Auto) 25.8 % Stanton % (Auto) 6.3 % Eos % (Auto) 1.4 % Baso % (Auto) 0.3 % Neut # (Auto) 6.19 (1.4-6.5) K/uL Lymph # (Auto) 2.42 (1.2-3.4) K/uL Stanton # (Auto) 0.59 (0.11-0.59) K/uL Eos # (Auto) 0.13 (0-0.5) K/uL Baso # (Auto) 0.03 (0-0.2) K/uL Immature Gran # (Auto) 0.01 (0.00-0.02) K/uL PT 10.3 (9.0-12.0) Seconds INR 1.0 (0.9-1.1) APTT 26.5 (21.0-31.0) Seconds PTT Ratio 1.0 Sodium (136-145) mmol/L Potassium (3.5-5.1) mmol/L Chloride (98-107) mmol/L Carbon Dioxide (21-32) mmol/L Anion Gap (3-11) BUN (7-18) mg/dl Creatinine (0.6-1.4) mg/dl Est Cr Clr Drug Dosing ml/min Est GFR ( Amer) ml/min Est GFR (Non-Af Amer) ml/min BUN/Creatinine Ratio (10-20) Glucose (70-99) mg/dl POC Glucose (70-99) mg/dl Estimat Average Glucose mg/dl Hemoglobin A1c (4.5-5.6) % Calcium (8.5-10.1) mg/dl Magnesium (1.8-2.4) mg/dl Total Bilirubin (0.2-1) mg/dl AST (15-37) U/L ALT (12-78) U/L Alkaline Phosphatase (45-117) U/L Troponin I (0-0.045) ng/ml Total Protein (6.4-8.2) gm/dl Albumin (3.4-5.0) gm/dl Globulin (2.5-4.0) gm/dl Albumin/Globulin Ratio (0.9-2) Triglycerides (0-150) mg/dl Cholesterol (0-200) mg/dl LDL Cholesterol, Calc mg/dl VLDL Cholesterol, Calc mg/dl HDL Cholesterol mg/dl Cholesterol/HDL Ratio Lipase (73-393) U/L COVID-19 Eval Order SARS-CoV-2 (PCR) NEGATIVE (Negative) 04/23/21 Range/Units 19:07 WBC (4.8-10.8) K/uL RBC (4.7-6.1) M/uL Hgb (14.0-18.0) g/dL Hct (42-52) % MCV (80-100) fL MCH (25-34) pg MCHC (32-36) g/dL RDW Std Deviation (36.4-46.3) fL RDW Coeff of Edilson (11.5-14.5) % Plt Count (130-400) K/uL MPV (7.4-10.4) fL Immature Gran % (Auto) % Neut % (Auto) % Lymph % (Auto) % Stanton % (Auto) % Eos % (Auto) % Baso % (Auto) % Neut # (Auto) (1.4-6.5) K/uL Lymph # (Auto) (1.2-3.4) K/uL Stanton # (Auto) (0.11-0.59) K/uL Eos # (Auto) (0-0.5) K/uL Baso # (Auto) (0-0.2) K/uL Immature Gran # (Auto) (0.00-0.02) K/uL PT (9.0-12.0) Seconds INR (0.9-1.1) APTT (21.0-31.0) Seconds PTT Ratio Sodium (136-145) mmol/L Potassium (3.5-5.1) mmol/L Chloride (98-107) mmol/L Carbon Dioxide (21-32) mmol/L Anion Gap (3-11) BUN (7-18) mg/dl Creatinine (0.6-1.4) mg/dl Est Cr Clr Drug Dosing ml/min Est GFR ( Amer) ml/min Est GFR (Non-Af Amer) ml/min BUN/Creatinine Ratio (10-20) Glucose (70-99) mg/dl POC Glucose (70-99) mg/dl Estimat Average Glucose mg/dl Hemoglobin A1c (4.5-5.6) % Calcium (8.5-10.1) mg/dl Magnesium (1.8-2.4) mg/dl Total Bilirubin (0.2-1) mg/dl AST (15-37) U/L ALT (12-78) U/L Alkaline Phosphatase (45-117) U/L Troponin I (0-0.045) ng/ml Total Protein (6.4-8.2) gm/dl Albumin (3.4-5.0) gm/dl Globulin (2.5-4.0) gm/dl Albumin/Globulin Ratio (0.9-2) Triglycerides (0-150) mg/dl Cholesterol (0-200) mg/dl LDL Cholesterol, Calc mg/dl VLDL Cholesterol, Calc mg/dl HDL Cholesterol mg/dl Cholesterol/HDL Ratio Lipase (73-393) U/L COVID-19 Eval Order Covid19 at [facility] SARS-CoV-2 (PCR) (Negative) Diagnostic Findings Impressions Chest X-Ray 04/23/21 14:13 SINGLE VIEW CHEST CLINICAL HISTORY: Atypical chest pain. FINDINGS: 2 AP, portable, upright chest radiographs are obtained. No prior studies are available for comparison at the time of dictation. The heart is mildly enlarged noting atherosclerotic calcification of the thoracic aorta. The pulmonary vasculature is noncongested. The lungs and pleural spaces are clear. No pneumothorax is seen. The skeletal structures are osteopenic. The bony thorax is grossly intact. Degenerative change is noted in the shoulders and thoracic spine. IMPRESSION: Mild cardiomegaly with no active disease in the chest. ACT 112: Negative or not required by law. Electronically signed by: Slava Franco M.D. 04/23/2021 6:16 PM Medications Administered Current Inpatient Medications Acetaminophen (Acetaminophen 325 Mg Tab) 650 mg PO Q4H PRN PRN Reason: Pain or Fever Stop: 05/24/21 01:01 Aspirin (Aspirin 81 Mg Ectab) 81 mg PO QAM KEY Stop: 05/24/21 08:59 Last Admin: 04/24/21 08:19 Dose: 81 mg Documented by: Atorvastatin Calcium (Atorvastatin 20 Mg Tab) 20 mg PO HS [facility] Stop: 05/24/21 20:59 Dextrose (Dextrose 50% 50 Ml Syringe) 25 - 50 ml IV UD PRN; Protocol PRN Reason: Hypoglycemia Protocol Stop: 05/24/21 01:01 Enoxaparin Sodium (Enoxaparin Inj 40 Mg/0.4 Ml Syr) 40 mg SQ Q12 KEY Stop: 05/24/21 01:01 Last Admin: 04/24/21 09:41 Dose: 40 mg Documented by: Glucagon (Glucagon For Inj 1 Mg Vial) 1 mg SQ UD PRN; Protocol PRN Reason: Hypoglycemia Protocol Stop: 05/24/21 01:01 Glucose (Glucose 10 Tabs/Tube) 4 - 8 tabs PO UD PRN; Protocol PRN Reason: Hypoglycemia Protocol Stop: 05/24/21 01:01 Glucose (Glucose 40% Gel 15 Gm Tube) 15 - 30 gm PO UD PRN; Protocol PRN Reason: Hypoglycemia Protocol Stop: 05/24/21 01:01 Insulin Aspart (Insulin Aspart 100 Units/Ml 3 Ml Pen) 0 units SC ACHS KEY Stop: 05/24/21 07:29 Last Admin: 04/24/21 12:42 Dose: 1 units Documented by: Insulin Glargine (Insulin Glargine Solostar 100 Units/Ml 3 Ml Pen) 12 units SC BID KEY Stop: 05/24/21 08:59 Last Admin: 04/24/21 08:20 Dose: 12 units Documented by: Lisinopril (Lisinopril 40 Mg Tab) 40 mg PO QAM KEY Stop: 05/24/21 08:59 Last Admin: 04/24/21 08:19 Dose: 40 mg Documented by: Miscellaneous (Carbohydrates For Hypoglycemia ) 15 - 30 gm PO UD PRN PRN Reason: Hypoglycemia Protocol Stop: 05/24/21 01:01 Morphine Sulfate (Morphine Sulfate 2 Mg/Ml Carp) 2 mg IV Q30M PRN PRN Reason: Chest Pain Stop: 05/08/21 01:01 Nitroglycerin (Nitroglycerin Sl 0.4 Mg/Tab Tab) 0.4 mg SL UD PRN PRN Reason: Chest Pain Stop: 05/24/21 01:01 Ondansetron HCl (Ondansetron Inj 2 Mg/Ml 2 Ml Vial) 4 mg IV Q6H PRN PRN Reason: Nausea Stop: 05/24/21 01:01 Polyethylene Glycol (Polyethylene (Miralax) 17 Gm Pack) 17 gm PO DAILY PRN PRN Reason: Constipation Stop: 05/24/21 01:01 Resident Activity Tracking Resident Involvement: Resident Care Provided Care Provided: Adult Hospital Medicine
[2021-04-24] MEDS ORDERED: CLOPIDOGREL BISULFATE 300 MG TAB ONE (17:35)
--- NOTE | 2021-04-24 17:39 | Post Anesthesia Assessment ---
Date of Service April 24, 2021 Post Sedation Assessment Vital Signs Temp Pulse Pulse Pulse Resp BP BP 04/24/21 15:09 92 H 04/24/21 14:59 98.6 F 61 18 111/72 04/24/21 11:40 97.7 F 85 85 16 126/76 04/24/21 08:49 78 04/24/21 01:13 97.7 F 97 H 16 174/85 H 04/24/21 01:11 101 H 04/24/21 01:02 97.7 F 97 H 16 174/85 H 04/24/21 00:07 80 16 04/23/21 22:49 83 16 04/23/21 21:30 79 16 04/23/21 21:00 82 20 04/23/21 20:30 84 18 04/23/21 20:00 76 17 04/23/21 19:30 74 16 04/23/21 19:26 138/95 BP Pulse Ox 04/24/21 15:09 04/24/21 14:59 95 04/24/21 11:40 96 04/24/21 08:49 04/24/21 01:13 98 04/24/21 01:11 04/24/21 01:02 98 04/24/21 00:07 125/71 97 04/23/21 22:49 150/91 H 98 04/23/21 21:30 96 04/23/21 21:00 98 04/23/21 20:30 98 04/23/21 20:00 100 04/23/21 19:30 99 04/23/21 19:26 Recovery Score Activity: Moves 4 extremities Respiration: Deep Breath/Cough Circulation: +/-20% PreAnes Value Consciousness: Fully Awake Oxygen Saturation: O2 needed for >90% Discharge Sedation Level of Care: Fast Track Phase II Post Sedation Plan On clinical assessment, the patient appears to have tolerated the sedation without complications. Patient is recovering as anticipated. Patient will continue to be monitored by nursing and may be discharged when sedation discharge criteria are met per below protocol. Upon Completions of procedure up to 15 minutes continue every 5 minute vital signs and the P.A.R. score; then discharge to a Phase I or Fast Track to Phase II per the following guidelines: * Discharge Patient to appropriate Phase II area if PAR is 8 or greater or return to pre- procedure baseline. The post - procedure orders will be as directed. * If PAR score is less than 8 or not return to pre-procedure baseline then patient will follow Phase I monitoring till PAR is reached for Phase II. The Phase I may be done in procedure room or may call to secure a Phase I area. * If naloxone or flumazenil are used for reversal, hold in Phase I for continued monitoring from when last reversal dose was given for a minimum of 60 minutes or longer pending the nurse and/or physician discretion of patient condition before discharge to Phase II. Please call the Sedation Physician to re-evaluate and complete post-note for discharge to Phase II area. Do NOT discharge from procedure sedation or Phase 1 until post- sedation evaluation note is complete by procedure /sedation MD Sedation Discharge Instructions to be given to the patient at discharge to home.
--- NOTE | 2021-04-24 17:40 | Cardiac Catheterization ---
[facility] Data: Surveillance Analyst Cardiac Status Clinical evaluation leading to the procedure CAD Presenation: Unstable angina Anginal Classification: CCS IV Heart Failure: No Cardiogenic Shock within 24 Hours: No Cardiac Arrest within 24 Hours: No Imaging Studies Past 6 Months: Yes Stress Studies Past 6 Months: No Diagnostic Physicians Name: Willard Lemos MD Status: Elective Closure Device Percutaneous Entry Location: Radial Closure Device: Radial Band Recommendations: PCI without planned CABG PCI Indication: Unstable Angina Lesion Segment Name: Mid LAD Culprit Artery: Yes Stenosis Prior to Rx (%): 98 Chronic Total Occlusion: No IVUS: Yes FFR: No Pre-Procedure RIGOBERTO Flow: 2 Previously Treated Lesion: No Lesion Complexity: Non-High/Non-C Lesion Length (mm): 25 Thrombus Present: Yes Bifurcation Lesion: No Guidewire Across Lesion: Stenosis Post-Procedure (%): 0 Post-Procedure RIGOBERTO Flow: 3 Devices(s) Deployed: Yes Yes Intraprocedure Events Significant Disection: No Perforation: No Cardiac Cath Procedure Full Procedure Date April 24, 2021 Pre-Procedure Diagnosis Pre-Procedure Diagnosis: Non STEMI and Angina AUC Score AUC Score: 8 Post-Procedure Diagnosis Post-Procedure Diagnosis: Severe CAD and Successful PCI Procedure(s) Performed Procedure(s) Performed: Coronary Angiography, Drug Eluting Stent and IVUS Janitorial Services Supervisor Willard Lemos MD Fha Underwriter(s) Yairr Estimated Blood Loss Estimated Blood Loss: < 20 Medication(s) Medication(s): Clopidogrel, Fentanyl, Heparin, Lidocaine 1%, Nicardipine and Versed Summary of Findings Indication: Unstable angina, apical wall motion abnormality Access: 6 Fr right radial artery Catheters: EBU 3.5 guide Findings: For full details of patient's coronary angiography please see cath report dictated by Dr. Conner. Briefly, patient found to have severe mid LAD disease (95+%). Decision to proceed with PCI. -- PCI -- Antithrombotic therapy: Heparin, clopidogrel Procedure: Left main cannulated with EBU 3.5 guide BMW wire passed across lesion into distal vessel Mid LAD lesion predilated with 3.0 compliant balloon Noted to have questionable ulcerated plaque versus occluded branch upstream from most stenotic area. [place] IVUS catheter placed across stenosis to further evaluate. Pullback revealed severe mildly calcified mid segment disease with area of ulcerated plaque. No significant ostial LAD/left main disease. Control Clerk Repairs 50 wire used to probe area of concern and additional vessel noted. Dilated LAD lesion stented with 4.0 x 30 mm Carlos drug-eluting stent from proximal to mid segment. Stent post-dilated with 4.5 noncompliant balloon IC vasodilators administered for spasm Repeat [place] IVUS revealed well apposed, well-expanded stent. Post procedure RIGOBERTO 3 flow, stent well expanded with minimal residual stenosis and no apparent cardiac complications. Arterial Closure: TR band Summary: 1. Successful PCI of proximal to mid LAD with single drug-eluting stent (4.0 x 30 mm Carlos; postdilated with 4.5 NC). Recommendations: To PCU for continued monitoring Loaded with clopidogrel 600 mg in Surveillance Analyst Continue dual-antiplatelet therapy for at least 1 year Continue statin, and ASCVD risk factor modification Consult cardiac Rehab Hemodynamics Rest Ao:: 116/60/84 Final Ao: 128/67/95 LV: 119/11 Recommendations Recommendations: PCI without planned CABG Specimens Specimens: None Radiation Exposure (mGy) 2713 Contrast (mls) 130 Fluids (cc crystalloids) Fluids (cc crystalloids): 175 Drains Drains: None Anesthesia Moderate 9565-0360 Procedural Complication(s) None Disposition PCU I attest to the content of the Intraoperative Record and any orders documented therein. Any exceptions are noted below. [facility] Card Cath Procedure Codes Cardiac Catheterization Procedure 1: Cardiovascular Cath Procedures: 74357 Left Heart Cath (+/-LV) Therapeutic Services & Ancillary Proc Procedure 1: Cardiovascular Tx and Anc Procedures: 15636 IV Ultrasound (Coronary or G raft) Moderate Sedation Procedure 1: Sedation/Anesthesia: 72875 Mod Sedation by the same physician; Ea [id number] Minutes Stenting Procedure 1: Cardiovascular Stent Procedures: 57433 Perc transcatheter placement of intracoronary stent(s), with ang PG Care Time/CCT Total # of Minutes Spent Total Time Spent with Patient: Total time spent is greater than 50% in coordination of care (as documented) at patient's floor/unit and/or counseling patient:
[2021-04-24] MEDS ORDERED: SODIUM CHLORIDE 0.9% 1000ML 1,000 ML IV SCH (18:00)
--- NOTE | 2021-04-24 19:56 | Billing Data ---
Date of Service April 24, 2021 Coding Level of Care Code 60889 Initial Inpt Care Lvl 3
--- NOTE | 2021-04-24 20:28 | Billing Data ---
Date of Service April 24, 2021 Coding Level of Care Code 47483 Subseq Hosp Care Lvl 3
[2021-04-24] MEDS ORDERED: ATORVASTATIN 40 MG TAB PO SCH (21:00)
[2021-04-24] MEDS: METOPROLOL SUCC 25MG EXT REL TAB PO SCH (21:00)
[2021-04-24] MEDS ORDERED: ATORVASTATIN 20 MG TAB PO SCH (21:00)
[2021-04-25 07:05] LABS: Basophils # (auto) 0.04 K/uL (0-0.2); Basophils % (auto) 0.5 %; Eosinophils % (auto) 1.1 %; Hemoglobin 12.2 g/dL (14.0-18.0); Immature Granulocytes # (auto) 0.01 K/uL (0.00-0.02); Immature Granulocytes % (auto) 0.1 %; Lymphocytes # (auto) 1.38 K/uL (1.2-3.4); Lymphocytes % (auto) 15.7 %; Mean Corpuscular Hemoglobin 28.9 pg (25-34); Mean Corpuscular Volume 87.7 fL (80-100); Monocytes # (auto) 0.75 K/uL (0.11-0.59); Monocytes % (auto) 8.6 %; Neutrophils # (auto) 6.49 K/uL (1.4-6.5); Platelet Count 273 K/uL (130-400); RDW Standard Deviation 41.9 fL (36.4-46.3); Red Blood Count 4.22 M/uL (4.7-6.1); White Blood Count 8.77 K/uL (4.8-10.8)
[2021-04-25 07:37] LABS: Calcium 9.2 mg/dl (8.5-10.1); Creatinine Clr Calc Pharmacy 74.1 ml/min; Est GFR (African American) 65.5 ml/min; Est GFR (Non-African American) 56.5 ml/min; Potassium 4.1 mmol/L (3.5-5.1)
[2021-04-25] MEDS: lisinopril 40 MG TAB PO SCH (07:59)
[2021-04-25] MEDS: INSULIN ASPART 100 UNITS/ML 3 ML PEN SC SCH ×2 (07:59→11:50)
[2021-04-25] MEDS: ASPIRIN 81 MG ECTAB PO SCH (07:59)
[2021-04-25] MEDS: ENOXAPARIN INJ 40 MG/0.4 ML SYR SQ SCH (08:00)
[2021-04-25] MEDS: INSULIN GLARGINE SOLOSTAR 100 UNITS/ML 3 ML PEN SC SCH (08:00)
[2021-04-25] MEDS ORDERED: CLOPIDOGREL BISULFATE 75 MG TAB PO SCH (09:00)
[2021-04-25] MEDS: METOPROLOL SUCC 25MG EXT REL TAB PO SCH (10:20)
--- NOTE | 2021-04-25 12:49 | Cardiology Progress Note ---
Date of Service April 25, 2021 Assessment & Plan (1) CAD (coronary artery disease): (2) S/P coronary artery stent placement: (3) Exertional angina: (4) Hypertension: (5) Hyperlipidemia: (6) Aortic stenosis: (7) Mitral stenosis: Plan: ASSESSMENT/PLAN: 1. CAD s/p LAD PCI: No further angina. Feels much better overall. Continue aspirin 81 mg daily indefinitely. Continue Plavix 75 mg daily for at least 1 year. Continue beta-anthony, high-intensity statin therapy, and UNA-inhibitor. Discussed cardiac rehab. He was asked to see if there is cardiac rehab available close to his home as the drive here is nearly 2 hours. 2. Angina: No further angina following PCI. 2. Aortic stenosis: Mild. Monitor as an outpatient. 3. Mitral stenosis: Appeared mild and may be related more so to the mitral annular calcification which was severe. Monitor as an outpatient. 4. Hypertension: Blood pressure well controlled. Continue current regimen. 5. Dyslipidemia: Continue high-intensity statin therapy. 6. Disposition: He was encouraged to walk in the hallways and if tolerated, can be discharged from a cardiology standpoint. Follow-up in the cardiology office in 1-2 weeks. Cardiology office will contact him with date/time of appointment. Patient care communicated with primary hospitalist service. Admission and Anticipated Discharge Date Admission Date: April 24, 2021 Subjective He denies chest pain, shortness of breath, syncope, near-syncope, palpitations, or bleeding. He said that he feels very good today, better than when he came to the hospital. He has not had any significant issues from his right radial cath site. Review of systems: As above. Physical Exam Physical Exam: Gen.: No acute distress. Alert and oriented. HEENT: Anicteric sclera. Neck: No JVD. Cardiac: PMI was nonpalpable. No ventricular heave. Regular. Normal S1-S2. 1/6 early peaking systolic ejection murmur best heard at the right upper sternal border. No rubs, or gallops. Pulmonary: Clear to auscultation bilaterally without wheezes, rales, or rhonchi. Abdomen: Soft, nontender, nondistended, with normoactive bowel sounds. No bruits noted. Extremities: 2+ radial pulses bilaterally. Right radial cath site is clean, dry, and intact without erythema or discharge. 2+ posterior tibialis pulses bilaterally. No edema or cyanosis. Psychiatric: Affect appears appropriate. Results & Data ([facility]) Vital Signs (Past 12 Hours) Vital Signs Temp Pulse Resp BP BP Pulse Ox 04/25/21 12:00 36.8 C 84 16 129/66 95 04/25/21 08:00 37.0 C 80 18 118/63 96 04/25/21 03:22 126/77 04/25/21 02:33 100/63 04/25/21 01:21 112/68 Laboratory Results Laboratory Results - last 24 hr 04/24/21 04/24/21 04/24/21 16:54 17:18 17:58 WBC RBC Hgb Hct MCV MCH MCHC RDW Std Deviation RDW Coeff of Edilson Plt Count MPV Immature Gran % (Auto) Neut % (Auto) Lymph % (Auto) Brooks % (Auto) Eos % (Auto) Baso % (Auto) Neut # (Auto) Lymph # (Auto) Brooks # (Auto) Eos # (Auto) Baso # (Auto) Immature Gran # (Auto) Activ Coag Time Kaolin 224 H 235 H Sodium Potassium Chloride Carbon Dioxide Anion Gap BUN Creatinine Est Cr Clr Drug Dosing Est GFR ( Amer) Est GFR (Non-Af Amer) BUN/Creatinine Ratio Glucose POC Glucose 109 H Calcium 04/24/21 04/25/21 04/25/21 20:22 06:29 06:29 WBC 8.77 RBC 4.22 L Hgb 12.2 L Hct 37.0 L MCV 87.7 MCH 28.9 MCHC 33.0 RDW Std Deviation 41.9 RDW Coeff of Edilson 13.0 Plt Count 273 MPV 10.0 Immature Gran % (Auto) 0.1 Neut % (Auto) 74.0 Lymph % (Auto) 15.7 Brooks % (Auto) 8.6 Eos % (Auto) 1.1 Baso % (Auto) 0.5 Neut # (Auto) 6.49 Lymph # (Auto) 1.38 Brooks # (Auto) 0.75 H Eos # (Auto) 0.10 Baso # (Auto) 0.04 Immature Gran # (Auto) 0.01 Activ Coag Time Kaolin Sodium 136 Potassium 4.1 Chloride 104 Carbon Dioxide 27 Anion Gap 5.0 BUN 19 H Creatinine 1.24 Est Cr Clr Drug Dosing 74.1 Est GFR ( Amer) 65.5 Est GFR (Non-Af Amer) 56.5 BUN/Creatinine Ratio 15.0 Glucose 165 H POC Glucose 155 H Calcium 9.2 04/25/21 04/25/21 07:34 11:29 WBC RBC Hgb Hct MCV MCH MCHC RDW Std Deviation RDW Coeff of Edilson Plt Count MPV Immature Gran % (Auto) Neut % (Auto) Lymph % (Auto) Brooks % (Auto) Eos % (Auto) Baso % (Auto) Neut # (Auto) Lymph # (Auto) Brooks # (Auto) Eos # (Auto) Baso # (Auto) Immature Gran # (Auto) Activ Coag Time Kaolin Sodium Potassium Chloride Carbon Dioxide Anion Gap BUN Creatinine Est Cr Clr Drug Dosing Est GFR ( Amer) Est GFR (Non-Af Amer) BUN/Creatinine Ratio Glucose POC Glucose 131 H 144 H Calcium Diagnostic Findings Telemetry personally reviewed: Sinus rhythm. Cardiac Cath 04/24/21: Coronary angiography: 1. Left main: No significant CAD. 2. Left anterior descending: Large caliber vessel that extends to the apex. Mid LAD 98% stenosis. Distal LAD diffusely diseased including 30 to 40% followed by 50%. RIGOBERTO I-II flow. Large D1 with ostial 70-80% stenosis. 3. Circumflex: Proximal luminal irregularities. Large OM1 with ostial/proximal 40%. 4. Right coronary artery: Dominant vessel. Mid RCA luminal irregularities. Proximal PDA 50 to 70%. RIGOBERTO-3 flow. Right to left collaterals. PCI: 1. Successful PCI of proximal to mid LAD with single drug-eluting stent (4.0 x 30 mm Carlos; postdilated with 4.5 NC). Medications Administered Current Inpatient Medications Acetaminophen (Acetaminophen 325 Mg Tab) 650 mg PO Q4H PRN PRN Reason: Pain or Fever Stop: 05/24/21 01:01 Last Admin: 04/24/21 20:59 Dose: 650 mg Documented by: Aspirin (Aspirin 81 Mg Ectab) 81 mg PO QAM [facility] Stop: 05/24/21 08:59 Last Admin: 04/25/21 07:59 Dose: 81 mg Documented by: Atorvastatin Calcium (Atorvastatin 40 Mg Tab) 80 mg PO HS [facility] Stop: 05/24/21 20:59 Last Admin: 04/24/21 21:00 Dose: 80 mg Documented by: Clopidogrel Bisulfate (Clopidogrel Bisulfate 75 Mg Tab) 75 mg PO QAM [facility] Stop: 05/25/21 08:59 Last Admin: 04/25/21 08:00 Dose: 75 mg Documented by: Dextrose (Dextrose 50% 50 Ml Syringe) 25 - 50 ml IV UD PRN; Protocol PRN Reason: Hypoglycemia Protocol Stop: 05/24/21 01:01 Enoxaparin Sodium (Enoxaparin Inj 40 Mg/0.4 Ml Syr) 40 mg SQ Q12 [facility] Stop: 05/24/21 01:01 Last Admin: 04/25/21 08:00 Dose: 40 mg Documented by: Glucagon (Glucagon For Inj 1 Mg Vial) 1 mg SQ UD PRN; Protocol PRN Reason: Hypoglycemia Protocol Stop: 05/24/21 01:01 Glucose (Glucose 10 Tabs/Tube) 4 - 8 tabs PO UD PRN; Protocol PRN Reason: Hypoglycemia Protocol Stop: 05/24/21 01:01 Glucose (Glucose 40% Gel 15 Gm Tube) 15 - 30 gm PO UD PRN; Protocol PRN Reason: Hypoglycemia Protocol Stop: 05/24/21 01:01 Insulin Aspart (Insulin Aspart 100 Units/Ml 3 Ml Pen) 0 units SC ACHS [facility] Stop: 05/24/21 07:29 Last Admin: 04/25/21 11:50 Dose: 3 units Documented by: Insulin Glargine (Insulin Glargine Solostar 100 Units/Ml 3 Ml Pen) 12 units SC BID [facility] Stop: 05/24/21 08:59 Last Admin: 04/25/21 08:00 Dose: 12 units Documented by: Lisinopril (Lisinopril 40 Mg Tab) 40 mg PO QAM [facility] Stop: 05/24/21 08:59 Last Admin: 04/25/21 07:59 Dose: 40 mg Documented by: Metoprolol Succinate (Metoprolol Succ 25mg Ext Rel Tab) 25 mg PO BID [facility] Stop: 05/24/21 20:59 Last Admin: 04/25/21 10:20 Dose: 25 mg Documented by: Miscellaneous (Carbohydrates For Hypoglycemia ) 15 - 30 gm PO UD PRN PRN Reason: Hypoglycemia Protocol Stop: 05/24/21 01:01 Morphine Sulfate (Morphine Sulfate 2 Mg/Ml Carp) 2 mg IV Q30M PRN PRN Reason: Chest Pain Stop: 05/08/21 01:01 Nitroglycerin (Nitroglycerin Sl 0.4 Mg/Tab Tab) 0.4 mg SL UD PRN PRN Reason: Chest Pain Stop: 05/24/21 01:01 Ondansetron HCl (Ondansetron Inj 2 Mg/Ml 2 Ml Vial) 4 mg IV Q6H PRN PRN Reason: Nausea Stop: 05/24/21 01:01 Polyethylene Glycol (Polyethylene (Miralax) 17 Gm Pack) 17 gm PO DAILY PRN PRN Reason: Constipation Stop: 05/24/21 01:01 PG Care Time/CCT Total # of Minutes Spent Total Time Spent with Patient: Total time spent is greater than 50% in coordination of care (as documented) at patient's floor/unit and/or counseling patient: Coding Level of Care Code 63030 Subseq Hosp Care Lvl 3 Diagnoses Exertional angina I20.8 Hypertension I10 Hyperlipidemia E78.5 Aortic stenosis I35.0 Mitral stenosis I05.0 CAD (coronary artery disease) I25.10 S/P coronary artery stent placement Z95.5
--- NOTE | 2021-04-25 16:56 | Electrocardiogram Report ---
Test Reason : Blood Pressure : / mmHG Vent. Rate : 073 BPM Atrial Rate : 073 BPM P-R Int : 192 ms QRS Dur : 066 ms QT Int : 372 ms P-R-T Axes : 000 -08 011 degrees QTc Int : 409 ms Poor data quality, interpretation may be adversely affected Normal sinus rhythm Low voltage QRS Possible Inferior infarct , age undetermined Nonspecific T wave abnormality Abnormal ECG When compared with ECG of 23-APR-2021 13:35, No significant change Confirmed by Graham Conner ([id number]) on 04/25/2021 4:56:39 PM Referred By: REFERRED SELF Confirmed By:Graham Conner
--- NOTE | 2021-04-25 17:34 | Discharge Summary ---
Date of Service April 25, 2021 Admission HPI Per Admitting Provider Will Davis is a 75-year-old male with past medical history of hyperlipidemia, hypertension, diabetes mellitus type 2, tobacco use who presents to [facility] due to exertional chest pain twice over the last 3 days. He says that the chest pain was localized to the left side of his chest and did not radiate to his arm or his neck, though he does say that his left hand felt a bit numb on one of the occasions. He describes the pain as mostly a pressure. This is the first time this is ever happened to him, has never had chest pain before. Denies nausea, vomiting, shortness of breath, dizziness, palpitations, loss of consciousness, swelling, abdominal pain, headache, urinary symptoms. In the ED, received aspirin 324 mg x 1. Had labs with troponin of 0.045 (detectable but at the high limit of normal value), hemoglobin of 13.7, normal white count, normal platelets, normal coags, normal electrolytes, elevated total protein of 8.7. COVID-19 negative. Chest x-ray with mild cardiomegaly and no active disease in the chest. EKG with normal sinus rhythm, no ST changes. Admission Exam Per Admitting Provider GENERAL: A&Ox3. NAD. HEENT: PERRL, EOMI. Moist mucous membranes. NECK: No JVD. No lymphadenopathy. CHEST/LUNGS: CTAB A/P. No crackles, wheezes, rales, rhonchi. HEART: RRR. 2/6 Systolic murmur best heard at upper right sternal border. ABDOMEN: NT/ND, soft. BS+ x4 EXTREMITIES: No cyanosis, no clubbing, no edema SKIN: Warm and dry. No rashes or lesions. PSYCHIATRIC: Euthymic affect, no SI, no pressured speech, no hallucinations NEUROLOGIC: No FND. CN II-XII grossly intact. Principal Diagnosis Unstable Angina secondary to Coronary Artery Disease, with Stent Placement Discharge Exam General: Well appearing, age appropriate Heart: RRR, +S1 S2, systolic murmur at sternal border Lungs: cta b/l, no wheezes/rales/rhonchi Abd: soft, NT/ND, +BS Extremities: no swelling, no rashes Discharge Data Allergies Allergy/AdvReac Type Severity Reaction Status Date / Time No Known Allergies Allergy Unverified 04/23/21 19:42 Consultations 04/23/21 20:08 ED Decision to Admit Stat 04/24/21 01:02 Consult Cardiology Routine 04/24/21 17:54 Consult Cardiac Rehabilitation Routine Procedures Performed Operation Date: 04/24/21 14:30 Actual Procedures p Cath, Left with Cors and Vent - Graham Conner MD s Drug Eluting Stent SGl Vessel - Holland Lemos MD s IVUS Coronary Single Vessel - Holland Lemos MD Ordered Studies 04/24/21 08:40 CL IVUS Coronary Single Vessel Routine 04/24/21 15:30 CL Cath Imgs for PACS use only Stat Hospital Course (1) Exertional chest pain: 75yo Male with PMH HTN, HLD, DM2 here for exertional chest pain. Severe LAD stenosis with Angina Patient had 2 ep exertional chest pain. EKGx3 NSR, inferior infarct. CXR mild cardiomegaly. Trop neg, CBC mild anemia Hbg 13.7, BMP WNL, Mg 1.9, HA1c 7. Echo = EF 65-70%, hypokinetic apex, severe LVH, mild aortic regurge with trace regurge, severe mitral annular calcification with mild stenosis, normal RVSP. Patient admitted to PCU Cardiology consulted, recommend catheterization with possible PCI Severe CAD involving mid LAD (culprit vessel) and ostial D1. Moderate to severe CAD involving the PDA, and otherwise nonobstructive CAD. Right to left collaterals. Dr. Lemos consulted for PCI. 04/24 s/p PCI stent placed. Cardiology recommends adding metoprolol 25mg BID, inc atorvastatin 40mg, plavix 75mg. Patient to continue ASA, lisinopril. We increased his atorvastatin to 80mg for now, please have PCP assess need to decrease in follow up visit. Patient to follow up with cardiology in 2 weeks. Patient to follow with cardiac rehab. Exertional Chest Pain see above Systolic murmur mild aortic and mitral stenosis Elevated total protein 8.7 --> 7.9 Diabetes Mellitus Type 2 Held home glipizide and Metformin on insulin in hospital, can resume home meds. A1c 7 Hypertension/Hyperlipidemia Continue home lisinopril 40 mg daily, added aokniusaep24cg BID. Lipid panel WNL (2) Systolic murmur: (3) Diabetes mellitus: (4) Hypertension: (5) Hyperlipidemia: (6) Elevated total protein: Total Time Total Time Spent Total Time Spent (In Minutes): Less than 30 Discharge Plan Discharge Items Patient Disposition: Home - Self-Care Reason For Visit: CHEST PAIN WITH EXERTION Discharge Diagnosis: Unstable Angina secondary to Coronary Artery Disease, with Stent Placement Activity: Resume your previous activity Non-emergency contact: Primary Care Provider Call non-emergency contact if: you have any medication questions and you have a fever Follow-up/Referrals: PCP,NO [Primary Care Provider] - Diet: Regular and Heart Healthy Addtl Attending Provider Instructions: You were admitted to the hospital for chest pain. We found 98% stenosis of your LAD, which is one of the main blood vessels that supply your heart. Our cardiologists were able to open the stenosis with a stent. You have several other additional narrow locations along your coronary arteries that do not need intervention at this time. We have made several changes to your medication list as stated below, these will help prevent blood clots and further worsening of your existing coronary artery disease, as well as reduce the strain on your heart. Please be sure to continue taking these medications at home and follow up with your PCP and duplicating machine operator upon leaving the hospital. We would also like you to get in touch with cardio rehab, for guidance on exercises you can do post heart interventions. We highly advise you to stop smoking cigarettes and cigars, and switch to a diet with less salt and fats. While we were able to open your artery with a stent, this does not prevent clogging of the stent in the future. The best thing you can do to prevent risk of heart attack is to adapt to a healthier life style. A discharge summary will be sent to your primary care physician to ensure continuity of care. Please bring this discharge summary with you to your next office appointment so that your provider can review it at that time. Follow-up appointments: Make a follow-up appointment with your PCP within the next week. It is very important that you follow up with them shortly after discharge from the hospital. Make a follow-up appointment with your duplicating machine operator. It is very important that you follow up with them shortly after discharge from the hospital. Keep all your follow-up appointments as already scheduled. If you cannot make an appointment, notify your provider. Medications: Your medication list has been reviewed and reconciled upon discharge to ensure accuracy and continuity of care. An updated list of all your medications is included with your hospital discharge paperwork. Please review this list closely, and make note of any changes. * We sent a new medication called Metoprolol Succinate to your pharmacy. Take Metoprolol Succinate 25mg one tablet twice a day. This is a blood pressure medication, to reduce the strain on your heart and give it space to recover. Please take this and your lisinopril daily at home. * We sent a new medication called Clopedigrel to your pharmacy. Take Clopedigrel 75mg one tablet daily. This is a blood thinner to prevent blood clots that may result from your stent. Please take this and your aspirin at home daily. * We have increased your dose of Atorvastatin. Please take Atorvastatin 80mg one tablet daily at night. While your cholesterol is at a good level, the increased dose will help manage the blockages that currently exist in your coronary arteries and prevent them from getting worse. Take your medications as instructed; do not skip a dose of your medicines. Make sure all of your doctors know every medicine you are taking (including rdzm-uop-okmntea medicines, vitamins, and supplements). Call your primary care provider before taking any new medicines (including vgbd-auy-lnodotu medicines, vitamins, and supplements), because some of these may interact with your current medications, or may make your symptoms worse. Tell your primary care provider if you cannot afford your medications. CONTACT YOUR PRIMARY CARE PROVIDER if you experience any of the following: fainting, difficulty breathing Difficulty following your treatment plan, or difficulty taking medications CALL 911 OR GO TO THE EMERGENCY DEPARTMENT if you experience any of the following: Sudden, severe abdominal pain or nausea/vomiting Severe chest pain, or chest pain that radiates (moves) to your jaw or arm Sudden, severe shortness of breath or difficulty breathing Thank you for allowing us to participate in your care. ACTIVITY RECOMMENDATIONS: Excess manipulation of the wrist should be avoided for the next 24-48 hours. * No lifting over 2 pounds (approximately a 1/2 gallon of milk) with the utilized arm for 24 hours. * No strenuous activity such as bowling or tennis for 3 days. * Keep the site of the procedure covered with a bandage for 24 hours. *You may shower the day after the procedure. Do not take a tub bath or submerge the puncture site in water for the next 3 days. *Do not operate any motorized equipment for 3 days. SPECIAL CARE INSTRUCTIONS: The site may be slightly bruised and sore following your procedure. Should any of the following occur, contact the Dr. who performed your procedure. 1. Redness/inflammation, swelling, chills, or fever, or colored drainage at procedure site within 3-7 days after your procedure. 2. Coldness, discoloration, ongoing numbness, severe pain, or swelling. Expect mild tingling of hand and tenderness at the puncture site for up to three days. If this persists beyond three days, or other symptoms develop, notify the Dr. who performed your procedure. BLEEDING: If the procedure site on your wrist begins to bleed, do not panic 1. Place 1 or 2 fingers firmly just slightly above the insertion site to stop the bleeding. You may be able to feel your pulse as you hold pressure. 2. Lift your finger after 5 minutes to see if the bleeding has stopped. 3. Once the bleeding has stopped, gently wipe the wrist area clean with a bandage. * If the bleeding from your wrist does not stop after 10 minutes, or if there is a large amount of bleeding or spurting, call 911 (do not drive yourself to the hospital). SKIN IRRITATION: * You may experience some redness and/or swelling in the area where radiation was administered. If any skin irritation occurs, please contact your family physician. FOLLOW UP VISIT: 1. Follow up with Dr. Conner in 1-2 weeks. 2. Keep any scheduled doctor appointments. Pending Studies at Discharge: No Stand-Alone Forms: My [facility], Smoking Cessation Medications and DC Order Prescriptions: New atorvastatin 40 mg Tablet 80 mg PO HS 30 Days Qty: 60 RF: 0 clopidogrel 75 mg Tablet 75 mg PO QAM 30 Days Qty: 30 RF: 0 metoprolol succinate 25 mg Tablet Extended Release 24 Hr 25 mg PO BID 30 Days Qty: 60 RF: 0 Continued glipizide 10 mg Tablet 10 mg PO BID RF: 0 metformin 1,000 mg Tablet 1,000 mg PO BID RF: 0 lisinopril 40 mg Tablet 40 mg PO QAM RF: 0 Discontinued atorvastatin 20 mg Tablet 20 mg PO HS RF: 0 Discharge Orders: Discharge Order (Routine); Ordered 04/25/21 Ordered By: Fanny Cortez/Other Patient Handouts: A1C, Managing Type 2 Diabetes Admission Data Admit Date/Time: 04/24/21 14:13 Attending Provider: Kenn Latham Admit Provider: Darrius Li Primary Care Provider: PCP,NO Other Providers: Michael Russell ; Graham Conner Other Interventions: Discharge Summary Assessment (RN) Last Done: 04/25/21 14:29 Supervising Physician Co-Signing Physician Notes I personally examined the patient and verified all parrish points of history and exam, discussed case, and agree with decision making with Dr Zamora. Feels okay. No new complaints. Really wants to go home. Vitals noted, in general he is awake and alert pleasant no distress. HEENT normocephalic atraumatic mucous membranes moist. Breathing unlabored no accessory muscle use good effort. Skin shows no rashes no pallor or icterus. Neuro without focal deficits. Coronary artery disease/unstable anginanow status post cath and stenting. Med management discussedmedication by medication, and the risk/benefits, lifestyle change discussed extensively including diet exercise and smoke cessation, secondary risk reduction. Otherwise as above. Stable for home Resident Activity Tracking Resident Involvement: Resident Care Provided Care Provided: Adult Hospital Medicine
--- NOTE | 2021-04-25 19:48 | Billing Data ---
Date of Service April 25, 2021 Coding Level of Care Code D/C DAY MANAGEMENT <30 MINS
--- NOTE | 2021-04-25 21:53 | Electrocardiogram Report ---
Test Reason : Blood Pressure : / mmHG Vent. Rate : 088 BPM Atrial Rate : 088 BPM P-R Int : 192 ms QRS Dur : 074 ms QT Int : 356 ms P-R-T Axes : 033 -15 013 degrees QTc Int : 430 ms Normal sinus rhythm Low voltage QRS T wave abnormality, consider anterior ischemia Abnormal ECG When compared with ECG of 24-APR-2021 07:09, T wave inversion now evident in Anterior leads Confirmed by Graham Conner ([id number]) on 04/25/2021 9:52:49 PM Referred By: REFERRED SELF Confirmed By:Graham Conner
== END 2021-04-25 15:23 | disposition home or self-care (01) | DRG 247 ==
LOC: ED 13:23 → 2W 13:23 → SUATTDRO 21:40 → 2W 04-24 00:29 → 2S 04-24 14:14

== ENCOUNTER 2021-09-23 17:39 | Observation (INO) ==
--- NOTE | 2021-09-23 18:13 | Emergency Department Note ---
Impression & Plan Acute lower GI bleeding ED Provider Note NAME: MARTHA JOHNSON AGE: 75 SEX: M : 1945 ARRIVES VIA: Walk-In INFORMANT: Patient, ED PROVIDER(S): Tony Egan DO CHIEF COMPLAINT: GI bleeding HPI: The patient is a 75-year-old male who presented to the emergency department after having dark red stool per rectum. The patient states he had one episode. He has had similar symptoms in the past. He does a history of an upper GI bleed as well as diverticulitis. The patient states he only had one episode. He has had some weakness which is generalized but has had no chest pain or difficulty breathing. He denies having any lower extremity swelling. He has no abdominal pain or rectal pain at this time. He denies having any constipation or swelling around his rectum. The patient does have a history of coronary artery disease and was recently placed on Plavix and aspirin. ROS: See above HPI for pertinent positives & negatives. A total of 10 systems reviewed and were otherwise negative. PAST MEDICAL HISTORY: See Below PAST SURGICAL HISTORY: See Below FAMILY HISTORY: See Below SOCIAL HISTORY: See Below HOME MEDICATIONS: See Below ALLERGIES: See Below VITALS: See Below PHYSICAL EXAMINATION: GENERAL: Patient is awake alert in no acute distress patient is resting comfortably and showing no signs of anxiety EYES: The conjunctivae are clear. The pupils are round and reactive. EARS, NOSE, MOUTH AND THROAT: The nose is without any evidence of any deformity. Mucous membranes are moist. Tongue is midline. NECK: The neck is nontender and supple. RESPIRATORY: Normal respiratory effort is noted there is no evidence of wheezing rhonchi or rales CARDIOVASCULAR: Regular rate and rhythm was noted to auscultation. Systolic murmur was suggested. GASTROINTESTINAL: The abdomen was soft and nondistended. There is no tenderness guarding rigidity. Rectal exam revealed dark stool which was strongly heme positive. There was a possible polyp versus internal hemorrhoid noted on palpation. MUSCULOSKELETAL/EXTREMITIES: There is no evidence of gross deformity full range of motion is noted in the hips and shoulders. SKIN: There is no obvious evidence of any rash. There are no petechiae, pallor or cyanosis noted. NEUROLOGIC: Patient is awake alert and oriented x3 MEDICAL DECISION MAKING: The patient is a 75-year-old male who presented to emergency department for an evaluation of lower GI bleeding. The patient had an episode of hematochezia. On physical exam he did not have an external source. He had a small polyp on digital rectal exam which was internal. He has no history of this. The patient does have a history of upper GI bleeding. He has no abdominal pain on physical exam. He does have a history of diverticulosis as well. His presentation today could be consistent with the rectal mass versus diverticulosis. I discussed the patient's laboratory results with him. I also discussed his case with the on- call medical radiation tech. Given the patient's use of antiplatelet medications he feels the patient might be a better candidate for inpatient management. [facility] have agreed to evaluate the patient in the emergency department for further manage ment and disposition. Triage Nursing notes reviewed. Prior medical records reviewed Vital Signs: reviewed and remarkable for elevated blood pressure. Differential diagnosis: Diverticulosis, AVM, coagulopathy, colitis, inflammatory bowel disease, malignancy, Jaqui-Rubio tear, esophagitis, peptic ulcer disease, variceal bleed, gastritis, epistaxis, fissure, hemorrhoids, as well as other pathologies. ER treatment provided: See below Diagnostics interpreted by me: ECG: none Cardiac Monitoring: An order was placed for continuous cardiac monitoring. The monitor shows a rate of 81 bpm with sinus rhythm. Laboratory studies: As stated above and show below. Imaging studies: See below Consultation(s): I discussed this case with Dr. Montgomery who is on-call for gastroenterology. I discussed this case with Dr. Pugh who [facility]. Past Med/Surg History Medical History Aortic stenosis CAD (coronary artery disease) Hyperlipidemia Hypertension Mitral stenosis Type 2 diabetes mellitus Surgical History S/P coronary artery stent placement Social History Smoking Status: Former smoker Tobacco Type: Cigarettes Cigarettes Per Day: occassionally; Second Hand Exposure: No; Hx Alcohol Use: No Hx Substance Use: No Preferred Language: Chinese Communication Ability: Effective Commanding Officer [employer] Required: No Beliefs That Will Affect Care: None Current Living Situation: Spouse Current Living Situation Comment: Lives at home with Feels Safe at Home: Yes Assistive Devices: None Allergies Allergies Allergy/AdvReac Type Severity Reaction Status Date / Time No Known Allergies Allergy Verified 09/23/21 18:35 Home Meds Home Medications Medication Instructions Recorded Confirmed glipizide 10 mg tablet 10 mg PO BID 04/23/21 09/23/21 lisinopril 40 mg tablet 40 mg PO QAM 04/23/21 09/23/21 metformin 1,000 mg tablet 1,000 mg PO BID 04/23/21 09/23/21 Previous Rx's Medication Instructions Recorded aspirin 81 mg capsule 81 mg PO DAILY #30 cap 04/28/21 atorvastatin 80 mg tablet 80 mg PO HS 30 Days #90 tab 05/14/21 clopidogrel 75 mg tablet 75 mg PO QAM #90 tab 05/14/21 metoprolol succinate 25 mg 25 mg PO DAILY #180 tab 05/14/21 tablet,extended release 24 hr nitroglycerin 0.4 mg sublingual 0.4 mg SUBLINGUAL Q5M PRN #25 tab 05/14/21 tablet Results & Data (ED) Vital Signs Vital Signs - 24 hr 09/23/21 17:45 09/23/21 18:17 09/23/21 19:00 Temperature 36.3 C L Temperature Source Temporal Artery Scan Pulse Rate 92 H 81 Pulse Rate [Apical] 69 Respiratory Rate 17 18 16 Respiratory Effort / Characteristics Non-Labored Spontaneous Respiratory Depth Normal Respiratory Pattern Regular Blood Pressure 190/90 H 143/86 H Blood Pressure Mean 123 105 Blood Pressure Position Sitting Pulse Oximetry 99 99 Oxygen Delivery Method Room Air Room Air Sepsis Recent Fever Within 48 Hours No Sepsis New/Unexplained Change in Mental Status N/A Sepsis Action Taken by Nursing No Action Required Home Medications Current Medication List: was personally reviewed by me Laboratory Data Attestation: I reviewed the patient's lab results. Result diagrams: 09/23/21 18:14 09/23/21 18:14 Lab Results 09/23/21 09/23/21 09/23/21 Range/Units 18:14 18:14 18:14 WBC 8.78 (4.8-10.8) K/uL RBC 4.52 L (4.7-6.1) M/uL Hgb 13.2 L (14.0-18.0) g/dL Hct 40.2 L (42-52) % MCV 88.9 (80-100) fL MCH 29.2 (25-34) pg MCHC 32.8 (32-36) g/dL RDW Std Deviation 42.3 (36.4-46.3) fL RDW Coeff of Edilson 13.1 (11.5-14.5) % Plt Count 253 (130-400) K/uL MPV 10.0 (7.4-10.4) fL Immature Gran % (Auto) 0.2 % Neut % (Auto) 75.6 % Lymph % (Auto) 16.2 % [place] % (Auto) 6.8 % Eos % (Auto) 0.9 % Baso % (Auto) 0.3 % Neut # (Auto) 6.63 H (1.4-6.5) K/uL Lymph # (Auto) 1.42 (1.2-3.4) K/uL [place] # (Auto) 0.60 H (0.11-0.59) K/uL Eos # (Auto) 0.08 (0-0.5) K/uL Baso # (Auto) 0.03 (0-0.2) K/uL Immature Gran # (Auto) 0.02 (0.00-0.02) K/uL PT 10.9 (9.0-12.0) Seconds INR 1.0 (0.9-1.1) APTT 25.6 (21.0-31.0) Seconds PTT Ratio 0.9 Sodium 137 (136-145) mmol/L Potassium 3.9 (3.5-5.1) mmol/L Chloride 101 (98-107) mmol/L Carbon Dioxide 28 (21-32) mmol/L Anion Gap 8 (3-11) BUN 18 (6-23) mg/dl Creatinine 1.03 (0.6-1.4) mg/dl Est Cr Clr Drug Dosing 89.7 ml/min Est GFR ( Amer) 82.0 ml/min Est GFR (Non-Af Amer) 70.7 ml/min BUN/Creatinine Ratio 17.5 (10-20) Glucose 203 H (70-99(Fasting)) mg/dl Calcium 9.9 (8.5-10.1) mg/dl Total Bilirubin 0.5 (0.2-1.0) mg/dl AST 18 (13-39) U/L ALT 24 (7-52) U/L Alkaline Phosphatase 73 (34-104) U/L Total Protein 7.6 (6.0-8.3) gm/dl Albumin 4.3 (3.4-5.0) gm/dl Globulin 3.3 (2.5-4.0) gm/dl Albumin/Globulin Ratio 1.3 (0.9-2) Lipase 29 (11-82) U/L Urine Color Urine Appearance (Clear) Urine pH (4.5-7.5) Ur Specific [place] (1.000-1.030) Urine Protein (Negative) Urine Glucose (UA) (Negative) Urine Ketones (Negative) Urine Blood (Negative) Urine Nitrite (Negative) Urine Bilirubin (Negative) Urine Urobilinogen (Negative) Ur Leukocyte Esterase (Negative) 09/23/21 Range/Units 18:14 WBC (4.8-10.8) K/uL RBC (4.7-6.1) M/uL Hgb (14.0-18.0) g/dL Hct (42-52) % MCV (80-100) fL MCH (25-34) pg MCHC (32-36) g/dL RDW Std Deviation (36.4-46.3) fL RDW Coeff of Edilson (11.5-14.5) % Plt Count (130-400) K/uL MPV (7.4-10.4) fL Immature Gran % (Auto) % Neut % (Auto) % Lymph % (Auto) % [place] % (Auto) % Eos % (Auto) % Baso % (Auto) % Neut # (Auto) (1.4-6.5) K/uL Lymph # (Auto) (1.2-3.4) K/uL [place] # (Auto) (0.11-0.59) K/uL Eos # (Auto) (0-0.5) K/uL Baso # (Auto) (0-0.2) K/uL Immature Gran # (Auto) (0.00-0.02) K/uL PT (9.0-12.0) Seconds INR (0.9-1.1) APTT (21.0-31.0) Seconds PTT Ratio Sodium (136-145) mmol/L Potassium (3.5-5.1) mmol/L Chloride (98-107) mmol/L Carbon Dioxide (21-32) mmol/L Anion Gap (3-11) BUN (6-23) mg/dl Creatinine (0.6-1.4) mg/dl Est Cr Clr Drug Dosing ml/min Est GFR ( Amer) ml/min Est GFR (Non-Af Amer) ml/min BUN/Creatinine Ratio (10-20) Glucose (70-99(Fasting)) mg/dl Calcium (8.5-10.1) mg/dl Total Bilirubin (0.2-1.0) mg/dl AST (13-39) U/L ALT (7-52) U/L Alkaline Phosphatase (34-104) U/L Total Protein (6.0-8.3) gm/dl Albumin (3.4-5.0) gm/dl Globulin (2.5-4.0) gm/dl Albumin/Globulin Ratio (0.9-2) Lipase (11-82) U/L Urine Color Yellow Urine Appearance Clear (Clear) Urine pH 5.0 (4.5-7.5) Ur Specific [place] 1.006 (1.000-1.030) Urine Protein Negative (Negative) Urine Glucose (UA) Trace H (Negative) Urine Ketones Negative (Negative) Urine Blood Negative (Negative) Urine Nitrite Negative (Negative) Urine Bilirubin Negative (Negative) Urine Urobilinogen Negative (Negative) Ur Leukocyte Esterase Negative (Negative) Discharge Plan Visit Data Chief Complaint: Rectal Bleed Stated Complaint: Rectal bleeding ED Provider: Tony Egan Discharge Problem: Acute lower GI bleeding Patient Disposition: Being Evaluated by Hospitalist Forms Stand Alone Forms: My [facility] Prescriptions Prescriptions: No Action atorvastatin 80 mg tablet 80 mg PO HS 30 Days Qty: 90 RF: 3 clopidogrel 75 mg tablet 75 mg PO QAM Qty: 90 RF: 3 metoprolol succinate 25 mg tablet extended release 24 hr 25 mg PO DAILY Qty: 180 RF: 3 nitroglycerin 0.4 mg tablet, sublingual 0.4 mg sublingual Q5M PRN (Reason: chest pain) Qty: 25 RF: 4 glipizide 10 mg Tablet 10 mg PO BID RF: 0 metformin 1,000 mg Tablet 1,000 mg PO BID RF: 0 lisinopril 40 mg Tablet 40 mg PO QAM RF: 0 aspirin 81 mg capsule 81 mg PO DAILY Qty: 30 RF: 0 Referrals Referrals: Mary Bautista M.D. [Primary Care Provider] -
[2021-09-23 18:26] LABS: Appearance Urine Clear (Clear); Bilirubin Urine Negative (Negative); Blood Urine Negative (Negative); Color Urine Yellow; Glucose Urine UA Trace (Negative); Ketones Urine Negative (Negative); Leukocyte Esterase Urine Negative (Negative); Nitrite Urine Negative (Negative); Protein Urine Negative (Negative); Specific Gravity Urine 1.006 (1.000-1.030); Urobilinogen Urine Negative (Negative)
[2021-09-23 18:27] LABS: Basophils # (auto) 0.03 K/uL (0-0.2); Basophils % (auto) 0.3 %; Eosinophils # (auto) 0.08 K/uL (0-0.5); Eosinophils % (auto) 0.9 %; Hematocrit (blood only) 40.2 % (42-52); Hemoglobin 13.2 g/dL (14.0-18.0); Immature Granulocytes # (auto) 0.02 K/uL (0.00-0.02); Immature Granulocytes % (auto) 0.2 %; Lymphocytes # (auto) 1.42 K/uL (1.2-3.4); Lymphocytes % (auto) 16.2 %; Mean Corpuscular Hemoglobin 29.2 pg (25-34); Mean Corpuscular Hgb Conc 32.8 g/dL (32-36); Mean Corpuscular Volume 88.9 fL (80-100); Monocytes % (auto) 6.8 %; Neutrophils # (auto) 6.63 K/uL (1.4-6.5); Neutrophils % (auto) 75.6 %; Platelet Count 253 K/uL (130-400); RDW Coefficient of Variation 13.1 % (11.5-14.5); RDW Standard Deviation 42.3 fL (36.4-46.3); Red Blood Count 4.52 M/uL (4.7-6.1); White Blood Count 8.78 K/uL (4.8-10.8)
[2021-09-23 18:44] LABS: Partial Thromboplastin Ratio 0.9; Partial Thromboplastin Time 25.6 Seconds (21.0-31.0); Prothrombin Time 10.9 Seconds (9.0-12.0)
[2021-09-23 18:48] LABS: Albumin Globulin Ratio 1.3 (0.9-2); Albumin Level 4.3 gm/dl (3.4-5.0); BUN Creatinine Ratio 17.5 (10-20); Bilirubin,Total 0.5 mg/dl (0.2-1.0); Calcium 9.9 mg/dl (8.5-10.1); Creatinine Clr Calc Pharmacy 89.7 ml/min; Est GFR (Non-African American) 70.7 ml/min; Globulin 3.3 gm/dl (2.5-4.0); Potassium 3.9 mmol/L (3.5-5.1); Total Protein 7.6 gm/dl (6.0-8.3)
--- NOTE | 2021-09-23 19:34 | History & Physical Report ---
Date of Service September 23, 2021 Assessment & Plan (1) Acute lower GI bleeding: Plan: Will Davis is a 75yo male with PMHx significant for h/o upper GI bleed, diverticulosis, CAD (PCI with GABY x1 to LAD in 03/2021, recently started on Aspirin/Plavix), aortic stenosis, mitral stenosis, T2DM, HTN and HLD who presented to [facility] ED on 09/23 for dark red stool per rectum x1 episode. Acute Lower GI Bleed Hematochezia x1 before presentation to ED, with visible dark red blood on rectal exam in the ED. Suspect lower GI bleed 2/2 colonic/rectal polyp vs internal hemorrhoid vs diverticulosis. - Hgb stable at 13.2 and hemodynamically stable as well - consulted GI - appreciate recs - given that patient lives ~2 hours away, and he has h/o upper GI bleed, Dr. Montgomery would like patient made NPO and will plan on colonoscopy tomorrow while hospitalized - per GI recs, continue Protonix 40mg IV BID to cover for upper GI bleed (although history suggests against this etiology) - trend H/H at midnight and CBC in the AM CAD/HLD/HTN - hold Aspirin and Plavix - hold home Toprol XL, Lisinopril and Atorvastatin while NPO T2DM A1c 7.0 in 03/2021. - A1c in AM - held home Metformin and Glipizide - SSI FEN/GI: NPO, LR @80cc/hr DVT Prophylaxis: SCDs, chemoppx contraindicated due to GI bleed Code Status: full code Disposition: med/surg with tele (2) CAD (coronary artery disease): (3) S/P coronary artery stent placement: (4) Hypertension: (5) Hyperlipidemia: (6) Diabetes mellitus: History of Present Illness Chief Complaint: rectal bleed Primary Care Provider: Mary Bautista Will Davis is a 75yo male with PMHx significant for h/o upper GI bleed, diverticulosis, CAD (PCI with GABY x1 to LAD in 03/2021, recently started on Aspirin/Plavix), aortic stenosis, mitral stenosis, T2DM, HTN and HLD who presented to [facility] ED on 09/23 for dark red stool per rectum x1 episode. Has associated generalized weakness but no syncope/near-syncope, chest pain or SOB. No abdominal pain or rectal pain. +family history of cancer, unspecified (in brother). Only 4 pack year smoking history, quit 55 years ago. No alcohol use or other drug use. Lives with at home and proficient in all ADLs/iADLs. Able to tolerate moderate daily physical activity without issues (shovels snow). In the ED, the patient was initially hypertensive to 190/90 but otherwise afebrile and hemodynamically stable on RA. Hgb 13.2 (was 12.2 on 04/25/2021). CBC WNL. PT/PTT/INR WNL. UA without signs of infection. ED provider spoke with GI (Dr. Montgomery) who recommended keeping patient overnight with plans for colonoscopy tomorrow, given that the patient has h/o upper GI bleed/diverticulosis and lives ~two hours away. Patient was made NPO and started on Protonix 40mg IV BID. Allergies Allergy/AdvReac Type Severity Reaction Status Date / Time No Known Allergies Allergy Verified 09/23/21 18:35 Home Medications Medication Instructions Recorded Confirmed Type glipizide 10 mg tablet 10 mg PO BID 04/23/21 09/23/21 History lisinopril 40 mg tablet 40 mg PO QAM 04/23/21 09/23/21 History metformin 1,000 mg tablet 1,000 mg PO BID 04/23/21 09/23/21 History aspirin 81 mg capsule 81 mg PO DAILY #30 cap 04/28/21 09/23/21 Rx atorvastatin 80 mg tablet 80 mg PO HS 30 Days #90 tab 05/14/21 09/23/21 Rx clopidogrel 75 mg tablet 75 mg PO QAM #90 tab 05/14/21 09/23/21 Rx metoprolol succinate 25 mg 25 mg PO DAILY #180 tab 05/14/21 09/23/21 Rx tablet,extended release 24 hr nitroglycerin 0.4 mg sublingual 0.4 mg SUBLINGUAL Q5M PRN #25 tab 05/14/21 09/23/21 Rx tablet Past Med/Surg History Medical History Aortic stenosis CAD (coronary artery disease) Hyperlipidemia Hypertension Mitral stenosis Type 2 diabetes mellitus Surgical History S/P coronary artery stent placement Social History Smoking Status: Former smoker Tobacco Type: Cigarettes Cigarettes Per Day: occassionally; Second Hand Exposure: No; Hx Alcohol Use: No Hx Substance Use: No Preferred Language: Spanish Communication Ability: Effective Electrical Manufacturing Engineer Required: No Beliefs That Will Affect Care: Gnosticism Current Living Situation: Spouse Current Living Situation Comment: Lives at home with Feels Safe at Home: Yes Assistive Devices: None Review of Systems Review of Systems: All systems reviewed & are unremarkable except as noted in HPI & below Physical Exam Physical Exam: General: A&Ox3. NAD. Cooperative. HEENT: Atraumatic, normocephalic. Pulm: CTAB A&P. -wheezes, -rales, -rhonchi. Symmetrical chest rise. No increase work of breathing. No respiratory distress. Cardiac: RRR, -mrg. Radial pulses intact and symmetrical. No LE edema. Abdominal: soft, non-tender, non-distended, BS x 4 Skin: warm, dry, no rash Results & Data Results & Data ([facility]) Vital Signs (Past 12 Hours) Vital Signs Temp Pulse Pulse Resp BP Pulse Ox 09/23/21 19:00 81 16 143/86 H 09/23/21 18:17 69 18 99 09/23/21 17:45 36.3 C L 92 H 17 190/90 H 99 Code Status & VTE Plan Code Status full code Supervising Physician Co-Signing Physician Notes Attending addendum: I have physically seen this patient, have supervised the medical residents activities, and agree with the H&P unless as otherwise noted. Assessment and Plan: Acute lower GI bleed- Initial hemoglobin 13.2 H&H every 6 hours N.p.o. except essential medications Protonix 40 mg IV twice daily Consult gastroenterology Hold aspirin and Plavix CAD/hypertension- Continue metoprolol succinate Hold aspirin and Plavix as noted above Hold lisinopril Hyperlipidemia- Hold atorvastatin while n.p.o. Diabetes mellitus- Hold Metformin and glipizide Place on Accu-Cheks before meals and at bedtime NovoLog coverage per scale Remaining orders and notations as noted Resident Activity Tracking Resident Involvement: Resident Care Provided Care Provided: Adult Hospital Medicine
[2021-09-23] MEDS: PANTOprazole 40 MG in SYRINGE 0 ML IV SCH (20:41)
[2021-09-24] MEDS ORDERED: NITROGLYCERIN SL 0.4 MG/TAB TAB SL PRN (00:20)
[2021-09-24] MEDS ORDERED: CARBOHYDRATES FOR HYPOGLYCEMIA PO PRN (00:20)
[2021-09-24] MEDS ORDERED: GLUCOSE 10 TABS/TUBE PO PRN (00:20)
[2021-09-24] MEDS ORDERED: GLUCOSE 40% GEL 15 GM TUBE PO PRN (00:20)
[2021-09-24] MEDS ORDERED: GLUCAGON FOR INJ 1 MG VIAL SQ PRN (00:20)
[2021-09-24] MEDS ORDERED: DEXTROSE 50% 50 ML SYRINGE IV PRN (00:20)
[2021-09-24 00:48] LABS: Hemoglobin 11.9 g/dL (14.0-18.0)
[2021-09-24] MEDS: LACTATED RINGER'S 1,000 ML IV SCH ×2 (01:01→12:45)
--- NOTE | 2021-09-24 06:59 | Hospitalist Progress Note ---
Date of Service September 24, 2021 Assessment & Plan (1) Acute lower GI bleeding: Plan: Will Davis is a 75yo male with PMHx significant for h/o upper GI bleed, diverticulosis, CAD (PCI with GABY x1 to LAD in 03/2021, recently started on Aspirin/Plavix), aortic stenosis, mitral stenosis, T2DM, HTN and HLD who presented to [facility] ED on 09/23 for dark red stool per rectum x1 episode. Acute Lower GI Bleed Hematochezia x1 before presentation to ED, with visible dark red blood on rectal exam in the ED. Suspect lower GI bleed 2/2 colonic/rectal polyp vs internal hemorrhoid vs diverticulosis. - Hgb stable at 13.2 and hemodynamically stable as well - consulted GI - appreciate recs - given that patient lives ~2 hours away, and he has h/o upper GI bleed, Dr. Montgomery would like patient made NPO and will plan on colonoscopy tomorrow while hospitalized - per GI recs, continue Protonix 40mg IV BID to cover for upper GI bleed (although history suggests against this etiology) - trend H/H at midnight and CBC in the AM CAD/HLD/HTN - hold Aspirin and Plavix - hold home Toprol XL, Lisinopril and Atorvastatin while NPO T2DM A1c 7.0 in 03/2021. - A1c in AM - held home Metformin and Glipizide - SSI FEN/GI: NPO, LR @80cc/hr DVT Prophylaxis: SCDs, chemoppx contraindicated due to GI bleed Code Status: full code Disposition: med/surg with tele (2) CAD (coronary artery disease): (3) S/P coronary artery stent placement: (4) Hypertension: (5) Hyperlipidemia: (6) Diabetes mellitus: Admission and Anticipated Discharge Date Admission Date: September 23, 2021 Results & Data Results & Data ([facility]) Vital Signs (Past 12 Hours) Vital Signs Temp Pulse Pulse Pulse Resp BP BP 09/24/21 04:45 75 09/24/21 04:35 36.6 C 70 18 09/24/21 01:20 36.6 C 76 18 146/76 H 09/24/21 00:00 36.7 C 77 77 18 09/23/21 23:01 36.6 C 72 16 09/23/21 21:45 36.5 C 77 77 18 142/87 H 09/23/21 21:27 77 09/23/21 20:00 73 15 160/70 H 09/23/21 19:00 81 16 143/86 H BP Pulse Ox 09/24/21 04:45 09/24/21 04:35 131/76 96 09/24/21 01:20 97 09/24/21 00:00 147/82 H 99 09/23/21 23:01 110/66 97 09/23/21 21:45 97 09/23/21 21:27 143/78 H 98 09/23/21 20:00 99 09/23/21 19:00
[2021-09-24] MEDS ORDERED: INSULIN ASPART PER UNIT SC SCH ×2 (07:30→12:00)
--- NOTE | 2021-09-24 07:33 | Hospitalist Progress Note ---
Date of Service September 24, 2021 Assessment & Plan Plan: Acute Lower GI Bleed Hematochezia x1 before presentation to ED, with visible dark red blood on rectal exam in the ED. Suspect lower GI bleed 2/2 colonic/rectal polyp vs internal hemorrhoid vs diverticulosis. - Hgb stable at 13.2 and hemodynamically stable as well - continue NPO - per GI recs, continue Protonix 40mg IV BID to cover for upper GI bleed (although history suggests against this etiology) - did not receive bowel prep, colonoscopy scheduled for 3/3 DDx 1 - Diverticulosis This patient's history of diverticulitis as well as recent painless rectal bleeding is consistent with diverticulosis, therefore this is a possible DDx. DDx 2 - Colon Polyps Given the patient's history of colon polyps as well as recent painless rectal bleeding, it is reasonable to consider colon polyps as a possible DDx. DDX 3 - Angiodysplasia Being over 60 years of age and aortic stenosis are risk factors for development of Angiodysplasia, therefore this is considered as a DDx. Most cases must be diagnosed with angiography but can be initially identified with a coloscopy. If the patient's coloscopy returns inconclusive will considered angiography to further evaluate for this DDx. DDx 4 - Malignancy painless bright red blood per rectum in a 75 yo M raises concern for undiagnosed colorectal cancer and should be evaluated with colonoscopy DDx 5 - Internal Hemorrhoids The parrish clinical Sx would be painless bleeding with bowel movements. The patient does state he has no pain. However, he states he did not have a bowel movement when he first noticed the blood, in fact he was in a standing position while urinating which would be inconsistent with the presentation for internal hemorrhoids. DDx 5 - External Hemorrhoids Painless hematochezia more indicate of internal hemorrhoid, would be best diagnosed with colonoscopy. CAD/HLD/HTN - hold Aspirin and Plavix - hold home Toprol XL, Lisinopril and Atorvastatin while NPO T2DM A1c 7.0 in 03/2021. - A1c in AM - held home Metformin and Glipizide - SSI FEN/GI: NPO, LR @80cc/hr DVT Prophylaxis: SCDs, chemoppx contraindicated due to GI bleed Code Status: full code Disposition: patient elected to F/U as out patient and has been discharged Admission and Anticipated Discharge Date Admission Date: September 23, 2021 Subjective Will Davis is a 75yo male with PMHx significant for h/o upper GI bleed, diverticulosis, CAD (PCI with GABY x1 to LAD in 03/2021, recently started on Aspirin/Plavix), aortic stenosis, mitral stenosis, T2DM, HTN and HLD who presented to [facility] ED on 09/23 for dark red stool per rectum x1 episode. He states on 09/23/21 he was in a standing position while urinating and he observed blood fall onto the floor. He states his bowel movements have been regular and without pain. Because of his prior h.o of diverticulosis and GI ulcers, he constantly observes his stool after a bowel movement, and adds that leading up to the episode of hematochezia his stools did not have an alarming appearance to him. This morning his condition is stable, he continues to deny fatigue, fevers, chills, dizziness and ABD pain. He has not had a bowel movement since being admitted to the hospital because he has a colonoscopy planned for the 09/24 and has been put on NPO. He states he has a colonoscopy scheduled in less than one month. Would prefer to be discharged today as his hematochezia is limited to one episode and has no other concerning Sx. Physical Exam Physical Exam: General: NAD, well appearing, responding appropriately to questions Pulm: no labored breathing Skin: No lesions to visible areas ABD: no pain with palpation, no rebound or guarding. No ecchymosis or erythema on visible inspection. MSK: no swelling in his legs Results & Data Results & Data ([facility]) Vital Signs (Past 12 Hours) Vital Signs Temp Pulse Pulse Pulse Resp BP BP 09/24/21 07:16 36.6 C 74 18 165/78 H 09/24/21 04:45 75 09/24/21 04:35 36.6 C 70 18 09/24/21 01:20 36.6 C 76 18 146/76 H 09/24/21 00:00 36.7 C 77 77 18 09/23/21 23:01 36.6 C 72 16 09/23/21 21:45 36.5 C 77 77 18 142/87 H 09/23/21 21:27 77 09/23/21 20:00 73 15 160/70 H BP Pulse Ox 09/24/21 07:16 98 09/24/21 04:45 09/24/21 04:35 131/76 96 09/24/21 01:20 97 09/24/21 00:00 147/82 H 99 09/23/21 23:01 110/66 97 09/23/21 21:45 97 09/23/21 21:27 143/78 H 98 09/23/21 20:00 99 Laboratory Results 09/24/21 09/24/21 09/24/21 07:19 07:19 07:19 WBC 7.65 RBC 4.37 L Hgb 12.8 L Hct 38.7 L MCV 88.6 MCH 29.3 MCHC 33.1 RDW Std Deviation 42.8 RDW Coeff of Edilson 13.2 Plt Count 242 MPV 9.4 Immature Gran % (Auto) 0.1 Neut % (Auto) 66.9 Lymph % (Auto) 22.2 [place] % (Auto) 9.5 Eos % (Auto) 1.0 Baso % (Auto) 0.3 Neut # (Auto) 5.11 Lymph # (Auto) 1.70 [place] # (Auto) 0.73 H Eos # (Auto) 0.08 Baso # (Auto) 0.02 Immature Gran # (Auto) 0.01 PT INR APTT PTT Ratio Sodium 138 Potassium 4.1 Chloride 102 Carbon Dioxide 29 Anion Gap 7 BUN 14 Creatinine 1.02 Est Cr Clr Drug Dosing 116.7 Est GFR ( Amer) 82.9 Est GFR (Non-Af Amer) 71.6 BUN/Creatinine Ratio 13.7 Glucose 137 H POC Glucose Estimat Average Glucose 163 Hemoglobin A1c 7.3 H Calcium 9.8 Magnesium 1.6 L Total Bilirubin AST ALT Alkaline Phosphatase Total Protein Albumin Globulin Albumin/Globulin Ratio Lipase Urine Color Urine Appearance Urine pH Ur Specific [place] Urine Protein Urine Glucose (UA) Urine Ketones Urine Blood Urine Nitrite Urine Bilirubin Urine Urobilinogen Ur Leukocyte Esterase SARS-CoV-2, RNA, NAAT Blood Type Antibody Screen 09/24/21 09/24/21 09/23/21 07:00 00:38 19:25 WBC RBC Hgb 11.9 L Hct 36.0 L MCV MCH MCHC RDW Std Deviation RDW Coeff of Edilson Plt Count MPV Immature Gran % (Auto) Neut % (Auto) Lymph % (Auto) [place] % (Auto) Eos % (Auto) Baso % (Auto) Neut # (Auto) Lymph # (Auto) [place] # (Auto) Eos # (Auto) Baso # (Auto) Immature Gran # (Auto) PT INR APTT PTT Ratio Sodium Potassium Chloride Carbon Dioxide Anion Gap BUN Creatinine Est Cr Clr Drug Dosing Est GFR ( Amer) Est GFR (Non-Af Amer) BUN/Creatinine Ratio Glucose POC Glucose 126 H Estimat Average Glucose Hemoglobin A1c Calcium Magnesium Total Bilirubin AST ALT Alkaline Phosphatase Total Protein Albumin Globulin Albumin/Globulin Ratio Lipase Urine Color Urine Appearance Urine pH Ur Specific [place] Urine Protein Urine Glucose (UA) Urine Ketones Urine Blood Urine Nitrite Urine Bilirubin Urine Urobilinogen Ur Leukocyte Esterase SARS-CoV-2, RNA, NAAT NEGATIVE Blood Type Antibody Screen 09/23/21 09/23/21 09/23/21 18:27 18:14 18:14 WBC RBC Hgb Hct MCV MCH MCHC RDW Std Deviation RDW Coeff of Edilson Plt Count MPV Immature Gran % (Auto) Neut % (Auto) Lymph % (Auto) [place] % (Auto) Eos % (Auto) Baso % (Auto) Neut # (Auto) Lymph # (Auto) [place] # (Auto) Eos # (Auto) Baso # (Auto) Immature Gran # (Auto) PT INR APTT PTT Ratio Sodium 137 Potassium 3.9 Chloride 101 Carbon Dioxide 28 Anion Gap 8 BUN 18 Creatinine 1.03 Est Cr Clr Drug Dosing 89.7 Est GFR ( Amer) 82.0 Est GFR (Non-Af Amer) 70.7 BUN/Creatinine Ratio 17.5 Glucose 203 H POC Glucose Estimat Average Glucose Hemoglobin A1c Calcium 9.9 Magnesium Total Bilirubin 0.5 AST 18 ALT 24 Alkaline Phosphatase 73 Total Protein 7.6 Albumin 4.3 Globulin 3.3 Albumin/Globulin Ratio 1.3 Lipase 29 Urine Color Yellow Urine Appearance Clear Urine pH 5.0 Ur Specific [place] 1.006 Urine Protein Negative Urine Glucose (UA) Trace H Urine Ketones Negative Urine Blood Negative Urine Nitrite Negative Urine Bilirubin Negative Urine Urobilinogen Negative Ur Leukocyte Esterase Negative SARS-CoV-2, RNA, NAAT Blood Type O Positive Antibody Screen NEGATIVE 09/23/21 09/23/21 18:14 18:14 WBC 8.78 RBC 4.52 L Hgb 13.2 L Hct 40.2 L MCV 88.9 MCH 29.2 MCHC 32.8 RDW Std Deviation 42.3 RDW Coeff of Edilson 13.1 Plt Count 253 MPV 10.0 Immature Gran % (Auto) 0.2 Neut % (Auto) 75.6 Lymph % (Auto) 16.2 [place] % (Auto) 6.8 Eos % (Auto) 0.9 Baso % (Auto) 0.3 Neut # (Auto) 6.63 H Lymph # (Auto) 1.42 [place] # (Auto) 0.60 H Eos # (Auto) 0.08 Baso # (Auto) 0.03 Immature Gran # (Auto) 0.02 PT 10.9 INR 1.0 APTT 25.6 PTT Ratio 0.9 Sodium Potassium Chloride Carbon Dioxide Anion Gap BUN Creatinine Est Cr Clr Drug Dosing Est GFR ( Amer) Est GFR (Non-Af Amer) BUN/Creatinine Ratio Glucose POC Glucose Estimat Average Glucose Hemoglobin A1c Calcium Magnesium Total Bilirubin AST ALT Alkaline Phosphatase Total Protein Albumin Globulin Albumin/Globulin Ratio Lipase Urine Color Urine Appearance Urine pH Ur Specific [place] Urine Protein Urine Glucose (UA) Urine Ketones Urine Blood Urine Nitrite Urine Bilirubin Urine Urobilinogen Ur Leukocyte Esterase SARS-CoV-2, RNA, NAAT Blood Type Antibody Screen
[2021-09-24 07:34] LABS: Basophils # (auto) 0.02 K/uL (0-0.2); Basophils % (auto) 0.3 %; Eosinophils # (auto) 0.08 K/uL (0-0.5); Hematocrit (blood only) 38.7 % (42-52); Hemoglobin 12.8 g/dL (14.0-18.0); Immature Granulocytes # (auto) 0.01 K/uL (0.00-0.02); Immature Granulocytes % (auto) 0.1 %; Lymphocytes % (auto) 22.2 %; Mean Corpuscular Hemoglobin 29.3 pg (25-34); Mean Corpuscular Hgb Conc 33.1 g/dL (32-36); Mean Corpuscular Volume 88.6 fL (80-100); Mean Platelet Volume 9.4 fL (7.4-10.4); Monocytes # (auto) 0.73 K/uL (0.11-0.59); Monocytes % (auto) 9.5 %; Neutrophils # (auto) 5.11 K/uL (1.4-6.5); Neutrophils % (auto) 66.9 %; Platelet Count 242 K/uL (130-400); RDW Coefficient of Variation 13.2 % (11.5-14.5); RDW Standard Deviation 42.8 fL (36.4-46.3); Red Blood Count 4.37 M/uL (4.7-6.1); White Blood Count 7.65 K/uL (4.8-10.8)
[2021-09-24 08:20] LABS: BUN Creatinine Ratio 13.7 (10-20); Calcium 9.8 mg/dl (8.5-10.1); Creatinine Clr Calc Pharmacy 116.7 ml/min; Est GFR (African American) 82.9 ml/min; Est GFR (Non-African American) 71.6 ml/min; Magnesium 1.6 mg/dl (1.7-2.4); Potassium 4.1 mmol/L (3.5-5.1)
[2021-09-24 08:51] LABS: Estimated Average Glucose 163 mg/dl; Hemoglobin A1C 7.3 % (4.5-5.6)
[2021-09-24] MEDS: PANTOprazole 40 MG in SYRINGE 0 ML IV SCH (09:00)
--- NOTE | 2021-09-24 10:39 | Gastrointestinal Consultation ---
Date of Consultation September 24, 2021 Assessment & Plan (1) Acute lower GI bleeding: Given the abrupt resolution of bleeding, suspect diverticular bleeding source. Also ddx: AVM, PUD, malignancy (less likely as has undergone prior colorectal surveillance). * Recommended bowel preparation this evening and both upper and lower endoscopy tomorrow. The patient refuses and states "I am going home today". * Therefore, recommend outpatient endoscopic work up with primary GI. * Supportive care per primary team. Thank you for allowing us to participate in the care of this patient. If you have questions or concerns, please do not hesitate to contact us. Supervising Physician Co-Signing Physician Notes patient left AMA prior to me seeing him. History of Present Illness Reason for Consultation: lower GI bleed Requesting Physician: Dr. Pugh Attending Physician: Kenn Latham DO History of Present Illness Patient is a 75 y.o. male with a history of CAD s/p coronary artery stent placement on Plavix and aspirin admitted after a single episode of dark rectal blood per rectum. Reports he was urinating and had passed flatus and then noticed the blood dripping onto the floor. Concerned, he presented to the ER for further evaluation. On arrival, he was found to be hemodynamically stable with his chronic anemia. H&H did drop slightly to 12.8/38.7 today but he reports no further bleeding since admission. Has had several colonoscopic evaluations in the past and states he does have diverticulosis. He is due to have a repeat colonoscopy but states he refused to have testing scheduled. He denies any abdominal pain, n/v, dizziness, syncope, chest pain, palpitations or fatigue. No bowel habit irregularities prior to the onset of bleeding. Allergies Allergy/AdvReac Type Severity Reaction Status Date / Time No Known Allergies Allergy Verified 09/23/21 18:35 Home Medications Medication Instructions Recorded Confirmed Type glipizide 10 mg tablet 10 mg PO BID 04/23/21 09/23/21 History lisinopril 40 mg tablet 40 mg PO QAM 04/23/21 09/23/21 History metformin 1,000 mg tablet 1,000 mg PO BID 04/23/21 09/23/21 History aspirin 81 mg capsule 81 mg PO DAILY #30 cap 04/28/21 09/23/21 Rx atorvastatin 80 mg tablet 80 mg PO HS 30 Days #90 tab 05/14/21 09/23/21 Rx clopidogrel 75 mg tablet 75 mg PO QAM #90 tab 05/14/21 09/23/21 Rx metoprolol succinate 25 mg 25 mg PO DAILY #180 tab 05/14/21 09/23/21 Rx tablet,extended release 24 hr nitroglycerin 0.4 mg sublingual 0.4 mg SUBLINGUAL Q5M PRN #25 tab 05/14/21 09/23/21 Rx tablet Patient History Medical History Aortic stenosis CAD (coronary artery disease) Hyperlipidemia Hypertension Mitral stenosis Type 2 diabetes mellitus Surgical History S/P coronary artery stent placement Social History Smoking Status: Former smoker Tobacco Type: Cigarettes Cigarettes Per Day: occassionally; Second Hand Exposure: No; Hx Alcohol Use: No Hx Substance Use: No Preferred Language: Sinhala Communication Ability: Effective Crab Picker Required: No Beliefs That Will Affect Care: Episcopal Current Living Situation: Spouse Current Living Situation Comment: Lives at home with Feels Safe at Home: Yes Assistive Devices: None Review of Systems Review of Systems: All systems reviewed & are unremarkable except as noted in HPI & below Physical Exam Constitutional: WD/WN, vitals as above Eyes: EOM intact bilaterally Neck: normal appearance Respiratory: normal respiratory effort, lungs clear to auscultation Cardiovascular: Rate/Rhythm: regular rate and regular rhythm Heart Sounds: no gallop and no murmur Gastrointestinal (Abdomen): normal bowel sounds, soft, nontender, no hepatosplenomegaly Inspection/Auscultation: abdomen not distended Musculoskeletal: Extremities: no cyanosis no lower extremity edema Skin: no rashes, warm and dry Neurologic: moves all extremities Psychiatric: A+Ox3, euthymic affect Results & Data ([facility]) Vital Signs (Past 12 Hours) Vital Signs Temp Pulse Pulse Pulse Resp BP BP 09/24/21 07:16 36.6 C 74 18 165/78 H 09/24/21 06:17 72 09/24/21 04:45 75 09/24/21 04:35 36.6 C 70 18 131/76 09/24/21 01:20 36.6 C 76 18 146/76 H 09/24/21 00:00 36.7 C 77 77 18 147/82 H 09/23/21 23:01 36.6 C 72 16 110/66 Pulse Ox 09/24/21 07:16 98 09/24/21 06:17 09/24/21 04:45 09/24/21 04:35 96 09/24/21 01:20 97 09/24/21 00:00 99 09/23/21 23:01 97 Laboratory Results Abnormal lab results 09/23/21 09/23/21 09/23/21 Range/Units 18:14 18:14 18:14 RBC 4.52 L (4.7-6.1) M/uL Hgb 13.2 L (14.0-18.0) g/dL Hct 40.2 L (42-52) % Neut # (Auto) 6.63 H (1.4-6.5) K/uL Archer # (Auto) 0.60 H (0.11-0.59) K/uL Glucose 203 H (70-99(Fasting)) mg/dl POC Glucose (70-99) mg/dl Hemoglobin A1c (4.5-5.6) % Magnesium (1.7-2.4) mg/dl Urine Glucose (UA) Trace H (Negative) 09/24/21 09/24/21 09/24/21 Range/Units 00:38 07:00 07:19 RBC 4.37 L (4.7-6.1) M/uL Hgb 11.9 L 12.8 L (14.0-18.0) g/dL Hct 36.0 L 38.7 L (42-52) % Neut # (Auto) (1.4-6.5) K/uL Archer # (Auto) 0.73 H (0.11-0.59) K/uL Glucose (70-99(Fasting)) mg/dl POC Glucose 126 H (70-99) mg/dl Hemoglobin A1c (4.5-5.6) % Magnesium (1.7-2.4) mg/dl Urine Glucose (UA) (Negative) 09/24/21 09/24/21 Range/Units 07:19 07:19 RBC (4.7-6.1) M/uL Hgb (14.0-18.0) g/dL Hct (42-52) % Neut # (Auto) (1.4-6.5) K/uL Archer # (Auto) (0.11-0.59) K/uL Glucose 137 H (70-99(Fasting)) mg/dl POC Glucose (70-99) mg/dl Hemoglobin A1c 7.3 H (4.5-5.6) % Magnesium 1.6 L (1.7-2.4) mg/dl Urine Glucose (UA) (Negative) PG Care Time/CCT Total # of Minutes Spent Total Time Spent with Patient: Total time spent is greater than 50% in coordination of care (as documented) at patient's floor/unit and/or counseling patient: Coding Level of Care Code 71385 Initial Inpt Care Lvl 3 Diagnoses Acute lower GI bleeding K92.2
--- NOTE | 2021-09-24 12:52 | Discharge Summary ---
Date of Service September 24, 2021 Admission HPI Per Admitting Provider Will Davis is a 75yo male with PMHx significant for h/o upper GI bleed, diverticulosis, CAD (PCI with GABY x1 to LAD in 03/2021, recently started on Aspirin/Plavix), aortic stenosis, mitral stenosis, T2DM, HTN and HLD who presented to [facility] ED on 09/23 for dark red stool per rectum x1 episode. Has associated generalized weakness but no syncope/near-syncope, chest pain or SOB. No abdominal pain or rectal pain. +family history of cancer, unspecified (in brother). Only 4 pack year smoking history, quit 55 years ago. No alcohol use or other drug use. Lives with at home and proficient in all ADLs/iADLs. Able to tolerate moderate daily physical activity without issues (shovels snow). In the ED, the patient was initially hypertensive to 190/90 but otherwise afebrile and hemodynamically stable on RA. Hgb 13.2 (was 12.2 on 04/25/2021). CBC WNL. PT/PTT/INR WNL. UA without signs of infection. ED provider spoke with GI (Dr. Montgomery) who recommended keeping patient overnight with plans for colonoscopy tomorrow, given that the patient has h/o upper GI bleed/diverticulosis and lives ~two hours away. Patient was made NPO and started on Protonix 40mg IV BID. Principal Diagnosis LGI bleeding, resolved. Discharge Exam gen aaox3 pleasant nad heent nc at mmm breathing unlabored no accessory muscles good effort skin no rashes no pallor or icterus neuro no focal deficits Discharge Data Allergies Allergy/AdvReac Type Severity Reaction Status Date / Time No Known Allergies Allergy Verified 09/23/21 18:35 Consultations 09/23/21 19:41 ED Decision to Admit Stat 09/24/21 00:20 Consult Gastroenterology Routine Hospital Course (1) Acute lower GI bleeding: sent to ER due to LGI bleeding sx but also recent stent making asa/plavix necessary to continue unless truly catastrophic bleeding -- fortunately this was not the case and bleeding did not recur, was hemodynamically stable/Hgb stayed stable. now stable for home -- was set up for colo tomorrow inpt - but really wanted to go home and since bleeding stopped and hemodynamics are stable - OK to follow up as outpt for colo. ddx internal hemorrhoids > AVM > diverticular > polyp. PCP f/u and GI f/u. colo as outpt in near future. since bleeding stopped, no risk on hemodynamic instability, and fairly recent stent --> continue asa/plavix. stable for home Total Time Total Time Spent Total Time Spent (In Minutes): <30 Discharge Plan Discharge Items Patient Disposition: Home - Self-Care Reason For Visit: DARK RED BLOOD PER RECTUM Discharge Diagnosis: lower GI bleeding (see below) Activity: Resume your previous activity Non-emergency contact: Primary Care Provider and Front Office Associate Call non-emergency contact if: you have any medication questions and your symptoms worsen Follow-up/Referrals: Mary Bautista M.D. [Primary Care Provider] - (PLEASE CALL YOUR PRIMARY CARE PROVIDER TO SCHEDULE A DISCHARGE FOLLOW-UP APPOINTMENT WITHIN 7-10 DAYS) Diet: Carb Consistent or DM2 and Low Sodium (2gm) Addtl Attending Provider Instructions: lower GI bleeding -the episode you had - given the red blood, but short duration of bleeding - was most likely due to internal hemorrhoids. that said, a small diverticular bleed, bleeding from a polyp, or bleeding from an arteriovenous malformation (blood vessels that grow close to the surface of the wall of the colon - more common as we get older) could all easily create more or less the same picture -fortunately your blood counts are extremely reassuring (for all practical purposes they're the same as they were last night - technically slightly lower but well within the "margin of error" for hemoglobin as a lab value), your vitals look great, and the bleeding has not recurred - to that end, your plan to get home and evaluate this further as an outpatient appears to be very safe -of course, if you have any recurrence in bleeding, we'd want you back here right away - but i doubt this will happen - especially since we're nearly 24 hours from when the bleeding happened with no recurrence -stay on the aspirin and clopidogrel to protect your heart/blood vessels from a clot forming in the stent (the longer it has been since the stent was placed, the less risky it is to be off the blood thinner medicines - but for now we're still in the "fresh stent" time period so it's safer to stay on them for now) -follow up with your PCP, and I'd recommend getting a colonoscopy done in the near future (probably in the next 6 weeks or so is a reasonable time frame, obviously sooner is better than later, but as long as the bleeding does not recur, about 6 weeks would be OK) Pending Studies at Discharge: No Stand-Alone Forms: [facility], Smoking Cessation Medications and DC Order Prescriptions: Continued atorvastatin 80 mg tablet 80 mg PO HS 30 Days Qty: 90 RF: 3 clopidogrel 75 mg tablet 75 mg PO QAM Qty: 90 RF: 3 metoprolol succinate 25 mg tablet extended release 24 hr 25 mg PO DAILY Qty: 180 RF: 3 nitroglycerin 0.4 mg tablet, sublingual 0.4 mg sublingual Q5M PRN (Reason: chest pain) Qty: 25 RF: 4 glipizide 10 mg Tablet 10 mg PO BID RF: 0 metformin 1,000 mg Tablet 1,000 mg PO BID RF: 0 lisinopril 40 mg Tablet 40 mg PO QAM RF: 0 aspirin 81 mg capsule 81 mg PO DAILY Qty: 30 RF: 0 Discharge Orders: Discharge Order (Routine); Ordered 09/24/21 Ordered By: Kenn Cortez/Other Patient Handouts: Managing Type 2 Diabetes Admission Data Admit Date/Time: 09/23/21 20:02 Attending Provider: Kenn Latham Admit Provider: José Luis Pugh Primary Care Provider: Mary Bautista Other Providers: Michael Russell ; Abdulkadir Montgomery ; Paxton Stringer Coding Level of Care Code 54181 OBS Care - Discharge Diagnoses Acute lower GI bleeding K92.2
[2021-09-24] MEDS ORDERED: LAVAGE SOLUTION 4000ML PO SCH (18:00)
--- NOTE | 2021-09-24 21:52 | Billing Data ---
Date of Service September 24, 2021 Coding Level of Care Code 95442 Initial Inpt Care Lvl 3
== END 2021-09-24 13:26 | disposition home or self-care (01) ==
LOC: ED 17:39 → 3N 17:39 → SUATTDRO 20:02 → 3N 21:35 → 2W 09-24 01:13